=== PATIENT | male | born 1930 | race African-American/Black ===

== ENCOUNTER 2017-12-13 11:59 | Inpatient (IN) | payer MEDICARE, OTHER ==
[2017-12-13] VITALS (7 sets, daily range): BP systolic 82–105; BP diastolic 42–58
[~2017-12-13] VITALS: Ht 172.7 cm; Wt 58.5 kg
[2017-12-13] MEDS ORDERED: ASPIR 8181 MG ORAL (12:11)
[2017-12-13] MEDS ORDERED: BACLOFEN10 MG ORAL (12:11)
[2017-12-13] MEDS ORDERED: DONEPEZIL HCL5 MG ORAL (12:11)
[2017-12-13] MEDS ORDERED: PROSCAR5 MG ORAL (12:14)
[2017-12-13] MEDS ORDERED: FERROUS SULFAT325 MG ORAL (12:14)
[2017-12-13] MEDS ORDERED: MULTIVITAMINS1 EAC8 ORAL (12:14)
[2017-12-13] MEDS ORDERED: MELATONIN10 M4 PO (12:14)
[2017-12-13] MEDS ORDERED: GENTAMICIN SULF15 G2 TOPIC (12:14)
[2017-12-13] MEDS ORDERED: TYLENOL325 MG ORAL (12:22)
[2017-12-13] MEDS ORDERED: POLYETHYLENE GL17 GM ORAL (12:22)
[2017-12-13] MEDS ORDERED: SENNA LAXATIVE8.6 MG PO (12:22)
[2017-12-13] MEDS ORDERED: ACETAMINOPHEN325 M1 ORAL ×2 (12:22→12:26)
[2017-12-13] MEDS ORDERED: TAMSULOSIN HCL0.4 MG ORAL (12:22)
[2017-12-13] MEDS ORDERED: VITAMIN C500 M1 ORAL (12:26)
[2017-12-13] MEDS ORDERED: ZINC50 M1 ORAL (12:26)
[2017-12-13 13:26] LABS: HEMATOCRIT 38.6 % (42.0-52.0); HEMOGLOBIN 11.5 G/DL (14.2-18.0); MEAN CORPUSCULAR VOLUME 79 FL (80-99); PLATELET COUNT 467 K/UL (150-450); RED BLOOD COUNT 4.88 M/UL (4.70-6.10); RED CELL DISTRIBUTION WIDTH 17.7 % (11.6-14.8)
--- NOTE | 2017-12-13 13:30 | Diagnostic Imaging Report ---
Indication: Chest pain Comparison: None A single view chest radiograph was obtained. Findings: No definite infiltrate or pulmonary vascular congestion identified. The heart is normal in size. The aorta is mildly enlarged consistent with atherosclerotic vascular disease. Old rib fractures noted on the right. The bones are osteopenic. Impression: No acute disease
[2017-12-13 14:08] LABS: APPEARANCE,URINE TURBID; BILIRUBIN, URINE NEGATIVE (NEGATIVE); GLUCOSE, URINE (UA) NEGATIVE (NEGATIVE); KETONES,URINE NEGATIVE (NEGATIVE); LEUKOCYTE ESTERASE ,URINE 3+ (NEGATIVE); NITRITE,URINE POSITIVE (NEGATIVE); PH,URINE 8 (4.5-8.0); PROTEIN,URINE 4+ (NEGATIVE); UROBILINOGEN,URINE NORMAL MG/DL (0.0-1.0)
[2017-12-13 14:10] LABS: ANION GAP 16 mmol/L (5-15); BLOOD UREA NITROGEN 34 mg/dL (7-18); CALCIUM 10.5 MG/DL (8.5-10.1); CARBON DIOXIDE 19 MMOL/L (21-32); CHLORIDE 101 MMOL/L (98-107); CREATININE 1.3 MG/DL (0.55-1.30); SODIUM 136 MMOL/L (136-145)
[2017-12-13 14:11] LABS: COLOR,URINE PALE YELLOW
--- NOTE | 2017-12-13 14:13 | Emergency Room Report ---
History of Present Illness General Chief Complaint: Altered Level of Consciousness Present Illness Allergies: Coded Allergies: DIVALPROEX SODIUM (Verified Allergy, Unknown, 12/13/17) TERAZOSIN (Verified Allergy, Unknown, 12/13/17) Physical Exam Vital Signs Date Time Temp Pulse Resp B/P (MAP) Pulse Ox O2 Delivery O2 Flow Rate FiO2 12/13/17 12:04 110 24 83/44 98 Nasal Cannula 12/13/17 12:15 100.1 100.1 Medical Decision Making ER Course CHART IN ERROR PLEASE SEE OTHER CHART Last Vital Signs Date Time Temp Pulse Resp B/P (MAP) Pulse Ox O2 Delivery O2 Flow Rate FiO2 12/13/17 12:15 100.1 125 26 92/51 100 Room Air 100.1 Referrals: NON PHYSICIAN (PCP) Davdi Denney M.D. Dec 13, 2017 14:13
[2017-12-13] MEDS ORDERED: Miralax 17gm pkt ORAL PRN (14:30)
[2017-12-13] MEDS ORDERED: Morphine Sulfate 2mg/ml Inj IVP PRN (14:30)
[2017-12-13] MEDS ORDERED: Albuterol/Ipratropium 3ml neb HHN PRN (14:30)
--- NOTE | 2017-12-13 14:30 | History and Physical ---
History of Present Illness General Date patient seen: Dec 13, 2017 Reason for Hospitalization: Altered Level of Consciousness Present Illness HPI 87 year old male with hx of end-stage dementia, cachexia, residential resident brought in by paramedics with CC of altered level of consciousness. Pt seems very cachectic, hardly able to open his eyes. Allergies: Coded Allergies: DIVALPROEX SODIUM (Verified Allergy, Unknown, 12/13/17) TERAZOSIN (Verified Allergy, Unknown, 12/13/17) Medication History Scheduled Ascorbic Acid* (Vitamin C*), 500 MG ORAL DAILY, (Reported) Aspirin* (Aspir 81*), 81 MG ORAL DAILY, (Reported) Baclofen* (Baclofen*), 5 MG ORAL BID, (Reported) Donepezil Hcl* (Donepezil Hcl*), 5 MG ORAL DAILY, (Reported) Ferrous Sulfate* (Ferrous Sulfate*), 325 MG ORAL DAILY, (Reported) Finasteride* (Proscar*), 5 MG ORAL DAILY, (Reported) Gentamicin Sulfate (Gentamicin Sulfate*), 1 APPLIC TOPIC DAILY, (Reported) Melatonin (Melatonin), 9 MG PO BEDTIME, (Reported) Multivitamin With Minerals (Multivitamins With Minerals*), 1 TAB ORAL DAILY, ( Reported) Polyethylene Glycol 3350* (Polyethylene Glycol 3350*), 17 GM ORAL DAILY, ( Reported) Tamsulosin Hcl (Tamsulosin Hcl*), 0.4 MG ORAL BEDTIME, (Reported) Zinc (Zinc), Unknown Dose ORAL DAILY, (Reported) Scheduled PRN Acetaminophen (Tylenol), 650 MG ORAL DAILY PRN for Prn Pain/Headache/Temp > 101, (Reported) Acetaminophen* (Acetaminophen 325MG Tablet*), 325 MG ORAL Q4H PRN for Mild Pain (Pain Scale 1-3), (Reported) Acetaminophen* (Acetaminophen 325MG Tablet*), 325 MG ORAL Q4H PRN for Pain Scale (6-10), (Reported) Sennosides (Senna Laxative), 8.6 MG PO for Constipation, (Reported) Patient History Healthcare decision maker Resuscitation status Advanced Directive on File Past Medical/Surgical History Past Medical/Surgical History: (1) Advanced dementia Review of Systems All Other Systems: negative except mentioned in HPI Physical Exam General Appearance: WD/WN, cachetic Lines, tubes and drains: peripheral HEENT: normocephalic, atraumatic Neck: non-tender, normal alignment Breasts: no masses Cardiovascular/Chest: normal peripheral pulses Abdomen: normal bowel sounds, non tender Genitourinary/Rectal: normal genital exam Extremities: normal range of motion Skin Exam: normal pigmentation Last 24 Hour Vital Signs Date Time Temp Pulse Resp B/P (MAP) Pulse Ox O2 Delivery O2 Flow Rate FiO2 12/13/17 12:15 100.1 125 26 92/51 100 Room Air 100.1 12/13/17 12:04 110 24 83/44 98 Nasal Cannula Laboratory Tests Test 12/13/17 12:17 12/13/17 13:49 White Blood Count 31.0 K/UL (4.8-10.8) *H Red Blood Count 4.88 M/UL (4.70-6.10) Hemoglobin 11.5 G/DL (14.2-18.0) L Hematocrit 38.6 % (42.0-52.0) L Mean Corpuscular Volume 79 FL (80-99) L Mean Corpuscular Hemoglobin 23.5 PG (27.0-31.0) L Mean Corpuscular Hemoglobin Concent 29.7 G/DL (32.0-36.0) L Red Cell Distribution Width 17.7 % (11.6-14.8) H Platelet Count 467 K/UL (150-450) H Mean Platelet Volume 5.7 FL (6.5-10.1) L Neutrophils (%) (Auto) % (45.0-75.0) Lymphocytes (%) (Auto) % (20.0-45.0) Monocytes (%) (Auto) % (1.0-10.0) Eosinophils (%) (Auto) % (0.0-3.0) Basophils (%) (Auto) % (0.0-2.0) Differential Total Cells Counted 100 Neutrophils % (Manual) 88 % (45-75) H Lymphocytes % (Manual) 4 % (20-45) L Monocytes % (Manual) 3 % (1-10) Eosinophils % (Manual) 0 % (0-3) Basophils % (Manual) 0 % (0-2) Band Neutrophils 5 % (0-8) Platelet Estimate Adequate Platelet Morphology Normal Hypochromasia 1+ Anisocytosis 1+ Microcytosis 1+ Sodium Level 136 MMOL/L (136-145) Potassium Level 4.0 MMOL/L (3.5-5.1) Chloride Level 101 MMOL/L (98-107) Carbon Dioxide Level 19 MMOL/L (21-32) L Anion Gap 16 mmol/L (5-15) H Blood Urea Nitrogen 34 mg/dL (7-18) H Creatinine 1.3 MG/DL (0.55-1.30) Estimat Glomerular Filtration Rate mL/min (>60) Glucose Level 203 MG/DL (74-106) H Calcium Level 10.5 MG/DL (8.5-10.1) H Urine Color Pale yellow Urine Appearance Turbid Urine pH 8 (4.5-8.0) Urine Specific [place] 1.015 (1.005-1.035) Urine Protein 4+ (NEGATIVE) H Urine Glucose (UA) Negative (NEGATIVE) Urine Ketones Negative (NEGATIVE) Urine Blood 5+ (NEGATIVE) H Urine Nitrite Positive (NEGATIVE) H Urine Bilirubin Negative (NEGATIVE) Urine Urobilinogen Normal MG/DL (0.0-1.0) Urine Leukocyte Esterase 3+ (NEGATIVE) H Urine RBC 20-30 /HPF (0 - 0) H Urine WBC Tntc /HPF (0 - 0) H Urine Squamous Epithelial Cells Occasional /LPF Urine Bacteria Many /HPF (NONE) H Height (Feet): 5 Height (Inches): 8.00 Weight (Pounds): 130 Medications Current Medications Medications (Trade) Dose Ordered Sig/Sina Route PRN Reason Start Time Stop Time Status Last Admin Dose Admin Sodium Chloride 500 ml @ 250 mls/hr Q2H ONCE IV 12/13/17 13:02 12/13/17 15:01 12/13/17 13:20 Assessment/Plan Problem List: (1) Sepsis ICD Codes: A41.9 - Sepsis, unspecified organism SNOMED: 70888014 (2) ATN (acute tubular necrosis) ICD Codes: N17.0 - Acute kidney failure with tubular necrosis SNOMED: 26402799 (3) Advanced dementia ICD Codes: F03.90 - Unspecified dementia without behavioral disturbance SNOMED: 41837327 Assessment/Plan swan culture iv fluids iv abx swallow study check electrolytes NS to support BP dvt prophylaxis. Jossie Vela MD Dec 13, 2017 14:30
--- NOTE | 2017-12-13 14:32 | Emergency Room Report ---
History of Present Illness General Chief Complaint: Altered Level of Consciousness Present Illness HPI 87M SNF patient with DNR/comfort only sent for being more altered. Allergies: Coded Allergies: DIVALPROEX SODIUM (Verified Allergy, Unknown, 12/13/17) TERAZOSIN (Verified Allergy, Unknown, 12/13/17) Review of Systems All Other Systems: limited Physical Exam Vital Signs Date Time Temp Pulse Resp B/P (MAP) Pulse Ox O2 Delivery O2 Flow Rate FiO2 12/13/17 12:04 110 24 83/44 98 Nasal Cannula 12/13/17 12:15 100.1 100.1 Sp02 EP Interpretation: reviewed, normal General Appearance: no apparent distress, lethargic Head: normocephalic, atraumatic ENT: dry mucus membranes Neck: no carotid bruits Respiratory: no respiratory distress, speaking full sentences Cardiovascular #1: regular rate, rhythm Gastrointestinal: normal bowel sounds Musculoskeletal: other - right AKA Neurologic: other - minimally responsive, moves a little when stimulated; but otherwise just staring at ceiling, not moving Psychiatric: mood/affect normal Skin: no rash Medical Decision Making Diagnostic Impression: Primary Impression: Altered level of consciousness Additional Impression: Sepsis ER Course this patient is DNR/DNI and wbc 30k no infiltrate on cxr, urine pending. will defer antibx. to PMD SNF does not want to take back sepsis protocol not initiated due to DNR Chest X-Ray Diagnostic Results Chest X-Ray Diagnostic Results : Chest X-Ray Ordered: Yes # of Views/Limited/Complete: 1 View Indication: Shortness of Breath Interpretation: no consolidation, no effusion, no pneumothorax, no acute cardiopulmonary disease Last Vital Signs Date Time Temp Pulse Resp B/P (MAP) Pulse Ox O2 Delivery O2 Flow Rate FiO2 12/13/17 12:15 100.1 125 26 92/51 100 Room Air 100.1 Disposition: ADMITTED INPATIENT Referrals: NON PHYSICIAN (PCP) David Denney M.D. Dec 13, 2017 14:32
[2017-12-13] MEDS ORDERED: Vancomycin 1250mg/D5W 250ml IVPB ONE (18:00)
[2017-12-13] MEDS: Cefepime HCl 2 GM in D5W 110 ML IV SCH (18:14)
[2017-12-13] MEDS: Tamsulosin 0.4mg cap ORAL SCH (21:40)
[2017-12-13] MEDS: Heparin 5000 units/ml inj SUBQ SCH (21:44)
[2017-12-14] VITALS: BP 98/56
[2017-12-14] MEDS ORDERED: Vancomycin 1 GM in D5W 275 ML IV SCH (00:30)
[2017-12-14 04:00] VITALS: BP 109/87
[2017-12-14 07:55] LABS: HEMATOCRIT 32.9 % (42.0-52.0); HEMOGLOBIN 10.1 G/DL (14.2-18.0); MEAN CORPUSCULAR VOLUME 78 FL (80-99); PLATELET COUNT 400 K/UL (150-450); RED CELL DISTRIBUTION WIDTH 17.4 % (11.6-14.8)
[2017-12-14 07:58] LABS: WHITE BLOOD COUNT 24.2 K/UL (4.8-10.8)
[2017-12-14 08:00] VITALS: BP 110/56
[2017-12-14 08:17] LABS: ALANINE AMINOTRANSFERASE 80 U/L (12-78); ALBUMIN/GLOBULIN RATIO 0.3 (1.0-2.7); ALKALINE PHOSPHATASE 184 U/L (46-116); ANION GAP 12 mmol/L (5-15); ASPARTATE AMINO TRANSFERASE 72 U/L (15-37); BILIRUBIN,TOTAL 0.3 MG/DL (0.2-1.0); BLOOD UREA NITROGEN 35 mg/dL (7-18); CALCIUM 9.8 MG/DL (8.5-10.1); CARBON DIOXIDE 22 MMOL/L (21-32); CHLORIDE 106 MMOL/L (98-107); CREATININE 0.7 MG/DL (0.55-1.30); POTASSIUM 3.6 MMOL/L (3.5-5.1); SODIUM 140 MMOL/L (136-145)
--- NOTE | 2017-12-14 08:18 | Consultation ---
History of Present Illness General Date patient seen: Dec 14, 2017 Chief Complaint: Altered Level of Consciousness Reason for Consultation: Altered level of conciousness Present Illness HPI Infectious Disease Consult Note Mr. Morris is a 87 yo male presenting from a SNF for worse ALOC then usual. He is non-verbal so history obtained from the chart. He came with a sanabria catheter with cloudy urine. No further history available at this time. In the ED he was febrile to 100.5, Had a leukocytosis of 31 and was noted to have sacral ulcer. UA was positive with WBCs TNTC, CXR show No acute disease ID was consulted for sepsis Today the patient is still altered and not verbal but following simple commands , On RA and Afebrile. PMHx/PSHx Unable to obtian due to ALOC SocHx Live in a senior living DNR FamHx Unable to obtian due to ALOC Allergies: Coded Allergies: DIVALPROEX SODIUM (Verified Allergy, Unknown, 12/13/17) TERAZOSIN (Verified Allergy, Unknown, 12/13/17) Medication History Scheduled Ascorbic Acid* (Vitamin C*), 500 MG ORAL DAILY, (Reported) Aspirin* (Aspir 81*), 81 MG ORAL DAILY, (Reported) Baclofen* (Baclofen*), 5 MG ORAL BID, (Reported) Donepezil Hcl* (Donepezil Hcl*), 5 MG ORAL DAILY, (Reported) Ferrous Sulfate* (Ferrous Sulfate*), 325 MG ORAL DAILY, (Reported) Finasteride* (Proscar*), 5 MG ORAL DAILY, (Reported) Gentamicin Sulfate (Gentamicin Sulfate*), 1 APPLIC TOPIC DAILY, (Reported) Melatonin (Melatonin), 9 MG PO BEDTIME, (Reported) Multivitamin With Minerals (Multivitamins With Minerals*), 1 TAB ORAL DAILY, ( Reported) Polyethylene Glycol 3350* (Polyethylene Glycol 3350*), 17 GM ORAL DAILY, ( Reported) Tamsulosin Hcl (Tamsulosin Hcl*), 0.4 MG ORAL BEDTIME, (Reported) Zinc (Zinc), Unknown Dose ORAL DAILY, (Reported) Scheduled PRN Acetaminophen (Tylenol), 650 MG ORAL DAILY PRN for Prn Pain/Headache/Temp > 101, (Reported) Acetaminophen* (Acetaminophen 325MG Tablet*), 325 MG ORAL Q4H PRN for Mild Pain (Pain Scale 1-3), (Reported) Acetaminophen* (Acetaminophen 325MG Tablet*), 325 MG ORAL Q4H PRN for Pain Scale (6-10), (Reported) Sennosides (Senna Laxative), 8.6 MG PO for Constipation, (Reported) Patient History Healthcare decision maker ALLEN MORRIS Resuscitation status No Electrical Cardiovers Advanced Directive on File No Review of Systems ROS Narrative Unable to obtain due to ALOC Physical Exam Last 24 Hour Vital Signs Date Time Temp Pulse Resp B/P (MAP) Pulse Ox O2 Delivery O2 Flow Rate FiO2 12/14/17 04:00 98.6 109 20 109/87 (94) 100 98.6 12/14/17 00:00 98.5 103 20 98/56 (70) 98 98.5 12/13/17 21:00 Room Air 12/13/17 20:41 99.6 12/13/17 20:28 80 18 Room Air 12/13/17 20:11 100.5 12/13/17 20:00 99.6 106 20 97/53 (68) 98 99.6 12/13/17 17:11 Room Air 12/13/17 17:10 Room Air 12/13/17 17:08 105.0 82 18 82/44 (57) 95 105.0 12/13/17 17:00 100.5 82 18 82/42 (55) 95 100.5 12/13/17 16:07 97.8 102 20 110/53 98 Room Air 99.1 12/13/17 15:00 108 22 99/52 98 Room Air 12/13/17 14:00 116 29 105/56 99 Room Air 12/13/17 13:00 99.1 122 27 100/58 100 Room Air 99.1 12/13/17 12:15 100.1 125 26 92/51 100 Room Air 100.1 12/13/17 12:04 110 24 83/44 98 Nasal Cannula Intake and Output 12/13/17 12/14/17 19:00 07:00 Intake Total 500 ml Output Total 170 ml 600 ml Balance 330 ml -600 ml Intake Oral 0 ml IV Total 500 ml Output Urine Total 170 ml 600 ml # Bowel Movements 1 1 Laboratory Tests Test 12/13/17 12:17 12/13/17 13:49 12/14/17 06:40 White Blood Count 31.0 K/UL (4.8-10.8) *H 24.2 K/UL (4.8-10.8) *H Red Blood Count 4.88 M/UL (4.70-6.10) 4.20 M/UL (4.70-6.10) L Hemoglobin 11.5 G/DL (14.2-18.0) L 10.1 G/DL (14.2-18.0) L Hematocrit 38.6 % (42.0-52.0) L 32.9 % (42.0-52.0) L Mean Corpuscular Volume 79 FL (80-99) L 78 FL (80-99) L Mean Corpuscular Hemoglobin 23.5 PG (27.0-31.0) L 24.0 PG (27.0-31.0) L Mean Corpuscular Hemoglobin Concent 29.7 G/DL (32.0-36.0) L 30.6 G/DL (32.0-36.0) L Red Cell Distribution Width 17.7 % (11.6-14.8) H 17.4 % (11.6-14.8) H Platelet Count 467 K/UL (150-450) H 400 K/UL (150-450) Mean Platelet Volume 5.7 FL (6.5-10.1) L 5.9 FL (6.5-10.1) L Neutrophils (%) (Auto) % (45.0-75.0) % (45.0-75.0) Lymphocytes (%) (Auto) % (20.0-45.0) % (20.0-45.0) Monocytes (%) (Auto) % (1.0-10.0) % (1.0-10.0) Eosinophils (%) (Auto) % (0.0-3.0) % (0.0-3.0) Basophils (%) (Auto) % (0.0-2.0) % (0.0-2.0) Differential Total Cells Counted 100 Neutrophils % (Manual) 88 % (45-75) H Pending Lymphocytes % (Manual) 4 % (20-45) L Pending Monocytes % (Manual) 3 % (1-10) Eosinophils % (Manual) 0 % (0-3) Basophils % (Manual) 0 % (0-2) Band Neutrophils 5 % (0-8) Platelet Estimate Adequate Pending Platelet Morphology Normal Pending Hypochromasia 1+ Anisocytosis 1+ Microcytosis 1+ Sodium Level 136 MMOL/L (136-145) Pending Potassium Level 4.0 MMOL/L (3.5-5.1) Pending Chloride Level 101 MMOL/L (98-107) Pending Carbon Dioxide Level 19 MMOL/L (21-32) L Pending Anion Gap 16 mmol/L (5-15) H Blood Urea Nitrogen 34 mg/dL (7-18) H Pending Creatinine 1.3 MG/DL (0.55-1.30) Pending Estimat Glomerular Filtration Rate mL/min (>60) Pending Glucose Level 203 MG/DL (74-106) H Pending Calcium Level 10.5 MG/DL (8.5-10.1) H Pending Urine Color Pale yellow Urine Appearance Turbid Urine pH 8 (4.5-8.0) Urine Specific [place] 1.015 (1.005-1.035) Urine Protein 4+ (NEGATIVE) H Urine Glucose (UA) Negative (NEGATIVE) Urine Ketones Negative (NEGATIVE) Urine Blood 5+ (NEGATIVE) H Urine Nitrite Positive (NEGATIVE) H Urine Bilirubin Negative (NEGATIVE) Urine Urobilinogen Normal MG/DL (0.0-1.0) Urine Leukocyte Esterase 3+ (NEGATIVE) H Urine RBC 20-30 /HPF (0 - 0) H Urine WBC Tntc /HPF (0 - 0) H Urine Squamous Epithelial Cells Occasional /LPF Urine Bacteria Many /HPF (NONE) H Total Bilirubin Pending Aspartate Amino Transf (AST/SGOT) Pending Alanine Aminotransferase (ALT/SGPT) Pending Alkaline Phosphatase Pending Total Protein Pending Albumin Pending Globulin Pending Height (Feet): 5 Height (Inches): 8.00 Weight (Pounds): 130 Medications Current Medications Medications (Trade) Dose Ordered Sig/Sina Route PRN Reason Start Time Stop Time Status Last Admin Dose Admin Acetaminophen (Tylenol) 650 mg Q4H PRN ORAL fever (temp>100.5F) 12/13/17 14:30 01/12/18 14:29 12/13/17 20:11 Albuterol/ Ipratropium (Albuterol/ Ipratropium) 3 ml Q4H PRN HHN Shortness of Breath 12/13/17 14:30 12/18/17 14:29 Cefepime HCl 2 gm/ Dextrose 110 ml @ 220 mls/hr DAILY IV 12/13/17 16:00 12/20/17 15:59 12/13/17 18:14 Finasteride (Proscar) 5 mg DAILY ORAL 12/14/17 09:00 01/13/18 08:59 Heparin Sodium (Porcine) (Heparin 5000 units/ml) 5,000 units EVERY 12 HOURS SUBQ 12/13/17 21:00 01/12/18 20:59 12/13/17 21:44 Morphine Sulfate (Morphine Sulfate) 2 mg Q4H PRN IVP Moderate Pain (Pain Scale 4-6) 12/13/17 14:30 12/20/17 14:29 Ondansetron HCl (Zofran) 4 mg Q6H PRN IVP Nausea & Vomiting 12/13/17 14:30 01/12/18 14:29 Phenazopyridine HCl (Pyridium) 100 mg DAILYPRN PRN ORAL dysuria 12/13/17 14:30 01/12/18 14:29 Polyethylene Glycol (Miralax) 17 gm DAILYPRN PRN ORAL Constipation 12/13/17 14:30 01/12/18 14:29 Sodium Chloride 1,000 ml @ 50 mls/hr Q20H IV 12/14/17 06:45 01/13/18 06:44 12/14/17 06:55 Tamsulosin HCl (Flomax) 0.4 mg BEDTIME ORAL 12/13/17 21:00 01/12/18 20:59 12/13/17 21:40 Temazepam (Restoril) 15 mg HSPRN PRN ORAL Insomnia 12/13/17 21:00 12/20/17 20:59 Vancomycin HCl (Vanco rx to dose) 1 ea DAILY PRN MISC PER RX PROTOCOL 12/13/17 15:45 01/12/18 15:44 Vancomycin/Sodium Chloride 250 ml @ 166.667 mls/hr Q24H IVPB 12/14/17 18:00 12/19/17 17:59 Objective Narrative Gen: NAD, Following commands HEENT: NCAT, MMM, EOMI, PERRL, No Oral lesion, no scleral icterus, Poor dentition NECK: supple, No LAD, No JVD LUNGS: CTAB, No W/C, No Accessory muscle use CARDS: RRR, S1, S2, No M/R/G, ABD: Soft, NT, ND, No R/G, + BS, No HSM, No Masses : Sanabria in place Ext: C/C/E, Pulses 2+ B/L (DP, Rad): NEURO: A/O x O, Strength generally weak. Sensation Grossly intact PSYCH: Unable to assess SKIN:~ warm/dry, No rashes,Sacral ulcer unstageable with undermining - No significant surrounding erythema, no purulent drainage Assessment/Plan Assessment/Plan A: 87 yo male presenting from a SNF for worse ALOC then usual. Sepsis - Probable UTI or Bacteremia 12/13/17 - UA was positive with WBCs TNTC 12/13/17 - CXR - No acute disease Leukocytosis - 31 on admit - Down trending Fever - Resolved Sacral ulcer - Not stageable Not infected at this time No purulent drainage or significant surrounding erythema PMHx - Unknown P: Continue Cefepime and Vancomycin pending cultures f/u B/UCx Monitor CBC and Temps Supportive care Thank you for this consult. We will continue to follow the patient during this hospitalization Raf Blanchard MD Dec 14, 2017 08:18
[2017-12-14] MEDS: Cefepime HCl 2 GM in D5W 110 ML IV SCH (09:34)
[2017-12-14] MEDS: Heparin 5000 units/ml inj SUBQ SCH ×2 (09:38→20:48)
[2017-12-14 12:00] VITALS: BP 90/73
--- NOTE | 2017-12-14 14:26 | Pulmonology Progress Note ---
Assessment/Plan Problems: (1) Sepsis (2) ATN (acute tubular necrosis) (3) Advanced dementia Assessment/Plan Heart rate better still borderline hypotensive wbc decreasing Subjective ROS Limited/Unobtainable: No Constitutional: Reports: no symptoms HEENT: Repors: no symptoms Respiratory: Reports: no symptoms Allergies: Coded Allergies: DIVALPROEX SODIUM (Verified Allergy, Unknown, 12/13/17) TERAZOSIN (Verified Allergy, Unknown, 12/13/17) Objective Last 24 Hour Vital Signs Date Time Temp Pulse Resp B/P (MAP) Pulse Ox O2 Delivery O2 Flow Rate FiO2 12/14/17 12:00 98.6 108 18 90/73 (79) 100 98.6 12/14/17 09:00 Room Air 12/14/17 08:24 121 20 Room Air 12/14/17 08:00 98.1 123 20 110/56 (74) 97 98.1 12/14/17 04:00 98.6 109 20 109/87 (94) 100 98.6 12/14/17 00:00 98.5 103 20 98/56 (70) 98 98.5 12/13/17 21:00 Room Air 12/13/17 20:41 99.6 12/13/17 20:28 80 18 Room Air 12/13/17 20:11 100.5 12/13/17 20:00 99.6 106 20 97/53 (68) 98 99.6 12/13/17 17:11 Room Air 12/13/17 17:10 Room Air 12/13/17 17:08 105.0 82 18 82/44 (57) 95 105.0 12/13/17 17:00 100.5 82 18 82/42 (55) 95 100.5 12/13/17 16:07 97.8 102 20 110/53 98 Room Air 99.1 12/13/17 15:00 108 22 99/52 98 Room Air Intake and Output 12/13/17 12/14/17 19:00 07:00 Intake Total 500 ml Output Total 170 ml 600 ml Balance 330 ml -600 ml Intake Oral 0 ml IV Total 500 ml Output Urine Total 170 ml 600 ml # Bowel Movements 1 1 General Appearance: WD/WN HEENT: normocephalic, atraumatic Respiratory/Chest: chest wall non-tender, normal breath sounds Cardiovascular: normal peripheral pulses, normal rate Abdomen: normal bowel sounds, no organomegaly Skin: no rash, no ulcers Microbiology Date/Time Source Procedure Growth Status 12/13/17 13:49 Urine,Clean Catch Urine Culture - Preliminary Gram Negative Bacillus 1 Resulted Laboratory Tests 12/14/17 06:40: White Blood Count 24.2*H, Red Blood Count 4.20L, Hemoglobin 10.1L, Hematocrit 32.9L, Mean Corpuscular Volume 78L, Mean Corpuscular Hemoglobin 24.0L, Mean Corpuscular Hemoglobin Concent 30.6L, Red Cell Distribution Width 17.4H, Platelet Count 400, Mean Platelet Volume 5.9L, Neutrophils (%) (Auto) , Lymphocytes (%) (Auto) , Monocytes (%) (Auto) , Eosinophils (%) (Auto) , Basophils (%) (Auto) , Differential Total Cells Counted 100, Neutrophils % ( Manual) 83H, Lymphocytes % (Manual) 3L, Monocytes % (Manual) 10, Eosinophils % ( Manual) 0, Basophils % (Manual) 0, Band Neutrophils 4, Platelet Estimate Adequate, Platelet Morphology Normal, Red Blood Cell Morphology Normal, Sodium Level 140, Potassium Level 3.6, Chloride Level 106, Carbon Dioxide Level 22, Anion Gap 12, Blood Urea Nitrogen 35H, Creatinine 0.7, Estimat Glomerular Filtration Rate , Glucose Level 150H, Calcium Level 9.8, Total Bilirubin 0.3, Aspartate Amino Transf (AST/SGOT) 72H, Alanine Aminotransferase (ALT/SGPT) 80H, Alkaline Phosphatase 184H, Total Protein 8.0, Albumin 2.0L, Globulin 6.0, Albumin/Globulin Ratio 0.3L Current Medications Medications (Trade) Dose Ordered Sig/Sina Route PRN Reason Start Time Stop Time Status Last Admin Dose Admin Acetaminophen (Tylenol) 650 mg Q4H PRN ORAL fever (temp>100.5F) 12/13/17 14:30 01/12/18 14:29 12/13/17 20:11 Albuterol/ Ipratropium (Albuterol/ Ipratropium) 3 ml Q4H PRN HHN Shortness of Breath 12/13/17 14:30 12/18/17 14:29 Cefepime HCl 2 gm/ Dextrose 110 ml @ 220 mls/hr DAILY IV 12/13/17 16:00 12/20/17 15:59 12/14/17 09:34 Finasteride (Proscar) 5 mg DAILY ORAL 12/14/17 09:00 01/13/18 08:59 12/14/17 09:33 Heparin Sodium (Porcine) (Heparin 5000 units/ml) 5,000 units EVERY 12 HOURS SUBQ 12/13/17 21:00 01/12/18 20:59 12/14/17 09:38 Morphine Sulfate (Morphine Sulfate) 2 mg Q4H PRN IVP Moderate Pain (Pain Scale 4-6) 12/13/17 14:30 12/20/17 14:29 Ondansetron HCl (Zofran) 4 mg Q6H PRN IVP Nausea & Vomiting 12/13/17 14:30 01/12/18 14:29 Phenazopyridine HCl (Pyridium) 100 mg DAILYPRN PRN ORAL dysuria 12/13/17 14:30 01/12/18 14:29 Polyethylene Glycol (Miralax) 17 gm DAILYPRN PRN ORAL Constipation 12/13/17 14:30 01/12/18 14:29 Sodium Chloride 1,000 ml @ 50 mls/hr Q20H IV 12/14/17 06:45 01/13/18 06:44 12/14/17 06:55 Sodium Chloride 1,000 ml @ 999 mls/hr Q1H1M ONCE IV 12/14/17 14:15 12/14/17 15:15 UNV Tamsulosin HCl (Flomax) 0.4 mg BEDTIME ORAL 12/13/17 21:00 01/12/18 20:59 12/13/17 21:40 Temazepam (Restoril) 15 mg HSPRN PRN ORAL Insomnia 12/13/17 21:00 12/20/17 20:59 Vancomycin HCl (Vanco rx to dose) 1 ea DAILY PRN MISC PER RX PROTOCOL 12/13/17 15:45 01/12/18 15:44 Vancomycin/Sodium Chloride 250 ml @ 166.667 mls/hr Q24H IVPB 12/14/17 18:00 12/19/17 17:59 Jossie Vela MD Dec 14, 2017 14:26
--- NOTE | 2017-12-14 15:30 | Cardiology Report ---
APPROVED REPORT EKG Measurement Heart [id number] Sinus tachycardia Possible Left atrial enlargement Left axis deviation Inferior infarct, age undetermined T wave abnormality, consider lateral ischemia Abnormal ECG
[2017-12-14 16:00] VITALS: BP 102/98
[2017-12-14] MEDS ORDERED: Vancomycin 750mg/NS 250ml IVPB SCH (18:00)
[2017-12-14 20:00] VITALS: BP 104/57
[2017-12-14] MEDS: Tamsulosin 0.4mg cap ORAL SCH (20:47)
--- NOTE | 2017-12-14 21:44 | Consultation ---
History of Present Illness General Date patient seen: Dec 14, 2017 Chief Complaint: Altered Level of Consciousness Reason for Consultation: Altered level of conciousness Present Illness HPI 87 year old male with hx of end-stage dementia, cachexia, [facility] resident brought in by paramedics with CC of altered level of consciousness, the pt has waxing and waning of consciousness poor memory Allergies: Coded Allergies: DIVALPROEX SODIUM (Verified Allergy, Unknown, 12/13/17) TERAZOSIN (Verified Allergy, Unknown, 12/13/17) Medication History Scheduled Ascorbic Acid* (Vitamin C*), 500 MG ORAL DAILY, (Reported) Aspirin* (Aspir 81*), 81 MG ORAL DAILY, (Reported) Baclofen* (Baclofen*), 5 MG ORAL BID, (Reported) Donepezil Hcl* (Donepezil Hcl*), 5 MG ORAL DAILY, (Reported) Ferrous Sulfate* (Ferrous Sulfate*), 325 MG ORAL DAILY, (Reported) Finasteride* (Proscar*), 5 MG ORAL DAILY, (Reported) Gentamicin Sulfate (Gentamicin Sulfate*), 1 APPLIC TOPIC DAILY, (Reported) Melatonin (Melatonin), 9 MG PO BEDTIME, (Reported) Multivitamin With Minerals (Multivitamins With Minerals*), 1 TAB ORAL DAILY, ( Reported) Polyethylene Glycol 3350* (Polyethylene Glycol 3350*), 17 GM ORAL DAILY, ( Reported) Tamsulosin Hcl (Tamsulosin Hcl*), 0.4 MG ORAL BEDTIME, (Reported) Zinc (Zinc), Unknown Dose ORAL DAILY, (Reported) Scheduled PRN Acetaminophen (Tylenol), 650 MG ORAL DAILY PRN for Prn Pain/Headache/Temp > 101, (Reported) Acetaminophen* (Acetaminophen 325MG Tablet*), 325 MG ORAL Q4H PRN for Mild Pain (Pain Scale 1-3), (Reported) Acetaminophen* (Acetaminophen 325MG Tablet*), 325 MG ORAL Q4H PRN for Pain Scale (6-10), (Reported) Sennosides (Senna Laxative), 8.6 MG PO for Constipation, (Reported) Patient History Limited by: medical condition History Provided By: Patient, Medical Record, PMD Healthcare decision maker ALLEN MORRIS Resuscitation status No Electrical Cardiovers Advanced Directive on File No Past Medical/Surgical History Past Medical/Surgical History: (1) Altered level of consciousness (2) Advanced dementia (3) Sepsis (4) ATN (acute tubular necrosis) Review of Systems Psychiatric: Reports: prior hx, anxiety, depressed feelings Physical Exam General Appearance: no apparent distress, alert, confused, agitated Last 24 Hour Vital Signs Date Time Temp Pulse Resp B/P (MAP) Pulse Ox O2 Delivery O2 Flow Rate FiO2 12/14/17 20:00 99.6 113 20 104/57 (73) 99 99.6 12/14/17 19:04 107 20 Room Air 12/14/17 16:00 98.7 108 17 102/98 (99) 98 98.7 12/14/17 12:00 98.6 108 18 90/73 (79) 100 98.6 12/14/17 09:00 Room Air 12/14/17 08:24 121 20 Room Air 12/14/17 08:00 98.1 123 20 110/56 (74) 97 98.1 12/14/17 04:00 98.6 109 20 109/87 (94) 100 98.6 12/14/17 00:00 98.5 103 20 98/56 (70) 98 98.5 Intake and Output 12/13/17 12/14/17 19:00 07:00 Intake Total 500 ml Output Total 170 ml 600 ml Balance 330 ml -600 ml Intake Oral 0 ml IV Total 500 ml Output Urine Total 170 ml 600 ml # Bowel Movements 1 1 Laboratory Tests Test 12/14/17 06:40 12/14/17 17:15 White Blood Count 24.2 K/UL (4.8-10.8) *H Red Blood Count 4.20 M/UL (4.70-6.10) L Hemoglobin 10.1 G/DL (14.2-18.0) L Hematocrit 32.9 % (42.0-52.0) L Mean Corpuscular Volume 78 FL (80-99) L Mean Corpuscular Hemoglobin 24.0 PG (27.0-31.0) L Mean Corpuscular Hemoglobin Concent 30.6 G/DL (32.0-36.0) L Red Cell Distribution Width 17.4 % (11.6-14.8) H Platelet Count 400 K/UL (150-450) Mean Platelet Volume 5.9 FL (6.5-10.1) L Neutrophils (%) (Auto) % (45.0-75.0) Lymphocytes (%) (Auto) % (20.0-45.0) Monocytes (%) (Auto) % (1.0-10.0) Eosinophils (%) (Auto) % (0.0-3.0) Basophils (%) (Auto) % (0.0-2.0) Differential Total Cells Counted 100 Neutrophils % (Manual) 83 % (45-75) H Lymphocytes % (Manual) 3 % (20-45) L Monocytes % (Manual) 10 % (1-10) Eosinophils % (Manual) 0 % (0-3) Basophils % (Manual) 0 % (0-2) Band Neutrophils 4 % (0-8) Platelet Estimate Adequate Platelet Morphology Normal Red Blood Cell Morphology Normal Sodium Level 140 MMOL/L (136-145) Potassium Level 3.6 MMOL/L (3.5-5.1) Chloride Level 106 MMOL/L (98-107) Carbon Dioxide Level 22 MMOL/L (21-32) Anion Gap 12 mmol/L (5-15) Blood Urea Nitrogen 35 mg/dL (7-18) H Creatinine 0.7 MG/DL (0.55-1.30) Estimat Glomerular Filtration Rate mL/min (>60) Glucose Level 150 MG/DL (74-106) H Calcium Level 9.8 MG/DL (8.5-10.1) Total Bilirubin 0.3 MG/DL (0.2-1.0) Aspartate Amino Transf (AST/SGOT) 72 U/L (15-37) H Alanine Aminotransferase (ALT/SGPT) 80 U/L (12-78) H Alkaline Phosphatase 184 U/L (46-116) H Total Protein 8.0 G/DL (6.4-8.2) Albumin 2.0 G/DL (3.4-5.0) L Globulin 6.0 g/dL Albumin/Globulin Ratio 0.3 (1.0-2.7) L HIV (1&2) Antibody Rapid Negative (NEGATIVE) Hepatitis A IgM Antibody Pending Hepatitis B Surface Antigen Pending Hepatitis B Core IgM Antibody Pending Hepatitis C Antibody Pending Height (Feet): 5 Height (Inches): 8.00 Weight (Pounds): 130 Medications Current Medications Medications (Trade) Dose Ordered Sig/Sina Route PRN Reason Start Time Stop Time Status Last Admin Dose Admin Acetaminophen (Tylenol) 650 mg Q4H PRN ORAL fever (temp>100.5F) 12/13/17 14:30 01/12/18 14:29 12/13/17 20:11 Albuterol/ Ipratropium (Albuterol/ Ipratropium) 3 ml Q4H PRN HHN Shortness of Breath 12/13/17 14:30 12/18/17 14:29 Cefepime HCl 2 gm/ Dextrose 110 ml @ 220 mls/hr DAILY IV 12/13/17 16:00 12/20/17 15:59 12/14/17 09:34 Finasteride (Proscar) 5 mg DAILY ORAL 12/14/17 09:00 01/13/18 08:59 12/14/17 09:33 Heparin Sodium (Porcine) (Heparin 5000 units/ml) 5,000 units EVERY 12 HOURS SUBQ 12/13/17 21:00 01/12/18 20:59 12/14/17 20:48 Morphine Sulfate (Morphine Sulfate) 2 mg Q4H PRN IVP Moderate Pain (Pain Scale 4-6) 12/13/17 14:30 12/20/17 14:29 Ondansetron HCl (Zofran) 4 mg Q6H PRN IVP Nausea & Vomiting 12/13/17 14:30 01/12/18 14:29 Phenazopyridine HCl (Pyridium) 100 mg DAILYPRN PRN ORAL dysuria 12/13/17 14:30 01/12/18 14:29 Polyethylene Glycol (Miralax) 17 gm DAILYPRN PRN ORAL Constipation 12/13/17 14:30 01/12/18 14:29 Sodium Chloride 1,000 ml @ 50 mls/hr Q20H IV 12/14/17 06:45 01/13/18 06:44 12/14/17 06:55 Tamsulosin HCl (Flomax) 0.4 mg BEDTIME ORAL 12/13/17 21:00 01/12/18 20:59 12/14/17 20:47 Temazepam (Restoril) 15 mg HSPRN PRN ORAL Insomnia 12/13/17 21:00 12/20/17 20:59 Vancomycin HCl (Vanco rx to dose) 1 ea DAILY PRN MISC PER RX PROTOCOL 12/13/17 15:45 01/12/18 15:44 Vancomycin/Sodium Chloride 250 ml @ 166.667 mls/hr Q24H IVPB 12/14/17 18:00 12/19/17 17:59 12/14/17 17:07 Assessment/Plan Assessment/Plan encephalopathy due to [facility] Dementia -seroquel Nixon Barton MD Dec 14, 2017 21:44
[2017-12-15] VITALS: BP 98/51
[2017-12-15 04:00] VITALS: BP 90/46
--- NOTE | 2017-12-15 07:54 | Pulmonology Progress Note ---
Assessment/Plan Assessment/Plan ASSESSMENT Acute encephalopathy sepsis with bacteremia ( likely due to UTI) UTI with Proteus acute kidney injury dehydration anemia hypotension transaminitis prostate CA sacral decub, present on admission severe protein calorie malnutrition functional quadriplegia PLAN OF CARE Med Surg floor antibiotic ID follows , urine cx + proteus, bl cx 2/4 + GNR gentle IVF monitor electrolytes, renal parameters, correct electrolytes as needed ( today correct K) ,avoid nephrotoxic monitor BP closely O2 to keep pulse ox above 92%, pulmonary toilet DVT prophylaxis continue Proscar and Flomax wound care as per wound care nurse recommendation ; not appeared to be infected monitor LFT , probably shock liver due to sepsis monitor HH with goal to keep Hgb above 7 supportive care dietary eval DNR/DNI status. case discussed and evaluated by supervising physician Subjective Allergies: Coded Allergies: DIVALPROEX SODIUM (Verified Allergy, Unknown, 12/13/17) TERAZOSIN (Verified Allergy, Unknown, 12/13/17) Subjective leukocytosis trending down,still significant, fever at night Objective Last 24 Hour Vital Signs Date Time Temp Pulse Resp B/P (MAP) Pulse Ox O2 Delivery O2 Flow Rate FiO2 12/15/17 04:00 98.0 87 20 90/46 (61) 98 98.0 12/15/17 00:37 99.9 12/15/17 00:07 99.7 12/15/17 00:00 99.7 112 20 98/51 (67) 97 99.7 12/14/17 21:00 Room Air 12/14/17 20:00 99.6 113 20 104/57 (73) 99 99.6 12/14/17 19:04 107 20 Room Air 12/14/17 16:00 98.7 108 17 102/98 (99) 98 98.7 12/14/17 12:00 98.6 108 18 90/73 (79) 100 98.6 12/14/17 09:00 Room Air 12/14/17 08:24 121 20 Room Air 12/14/17 08:00 98.1 123 20 110/56 (74) 97 98.1 Intake and Output 12/14/17 12/15/17 19:00 07:00 Intake Total 240 ml 550 ml Output Total 400 ml 500 ml Balance -160 ml 50 ml Intake Oral 240 ml IV Total 550 ml Output Urine Total 400 ml 500 ml # Bowel Movements 1 General Appearance: cachetic, other - bedridden, frail, elderly contracted AA male HEENT: normocephalic Respiratory/Chest: lungs clear - with moderate air exchange Cardiovascular: no JVD, tachycardia Abdomen: soft, non tender Extremities: no edema Neurologic/Psychiatric: abnormal gait - bedridden , other - contracted Musculoskeletal: atrophy Microbiology Date/Time Source Procedure Growth Status 12/14/17 06:50 Blood Blood Culture - Preliminary Resulted 12/14/17 06:40 Blood Blood Culture - Preliminary Resulted 12/13/17 14:00 Nasal Nares MRSA Culture - Final NO METHICILLIN RESISTANT STAPH AUREUS... Complete 12/13/17 13:49 Urine,Clean Catch Urine Culture - Final Proteus Mirabilis Complete Laboratory Tests 12/14/17 17:15: Hepatitis A IgM Antibody [Pending], Hepatitis B Surface Antigen [Pending], Hepatitis B Core IgM Antibody [Pending], Hepatitis C Antibody [Pending] Current Medications Medications (Trade) Dose Ordered Sig/Sina Route PRN Reason Start Time Stop Time Status Last Admin Dose Admin Acetaminophen (Tylenol) 650 mg Q4H PRN ORAL fever (temp>100.5F) 12/13/17 14:30 01/12/18 14:29 12/15/17 00:07 Albuterol/ Ipratropium (Albuterol/ Ipratropium) 3 ml Q4H PRN HHN Shortness of Breath 12/13/17 14:30 12/18/17 14:29 Cefepime HCl 2 gm/ Dextrose 110 ml @ 220 mls/hr DAILY IV 12/13/17 16:00 12/20/17 15:59 12/14/17 09:34 Finasteride (Proscar) 5 mg DAILY ORAL 12/14/17 09:00 01/13/18 08:59 12/14/17 09:33 Heparin Sodium (Porcine) (Heparin 5000 units/ml) 5,000 units EVERY 12 HOURS SUBQ 12/13/17 21:00 01/12/18 20:59 12/14/17 20:48 Morphine Sulfate (Morphine Sulfate) 2 mg Q4H PRN IVP Moderate Pain (Pain Scale 4-6) 12/13/17 14:30 12/20/17 14:29 Ondansetron HCl (Zofran) 4 mg Q6H PRN IVP Nausea & Vomiting 12/13/17 14:30 01/12/18 14:29 Phenazopyridine HCl (Pyridium) 100 mg DAILYPRN PRN ORAL dysuria 12/13/17 14:30 01/12/18 14:29 Polyethylene Glycol (Miralax) 17 gm DAILYPRN PRN ORAL Constipation 12/13/17 14:30 01/12/18 14:29 Quetiapine Fumarate (SEROquel) 12.5 mg Q4H PRN ORAL agitation 12/14/17 21:45 01/13/18 21:44 Sodium Chloride 1,000 ml @ 50 mls/hr Q20H IV 12/14/17 06:45 01/13/18 06:44 12/15/17 05:09 Tamsulosin HCl (Flomax) 0.4 mg BEDTIME ORAL 12/13/17 21:00 01/12/18 20:59 12/14/17 20:47 Temazepam (Restoril) 15 mg HSPRN PRN ORAL Insomnia 12/13/17 21:00 12/20/17 20:59 Vancomycin HCl (Vanco rx to dose) 1 ea DAILY PRN MISC PER RX PROTOCOL 12/13/17 15:45 01/12/18 15:44 Vancomycin/Sodium Chloride 250 ml @ 166.667 mls/hr Q24H IVPB 12/14/17 18:00 12/19/17 17:59 12/14/17 17:07 Alyse Pruitt NP Dec 15, 2017 07:54
[2017-12-15 08:00] VITALS: BP 108/85
[2017-12-15 08:45] LABS: HEMOGLOBIN 8.5 G/DL (14.2-18.0); MEAN CORPUSCULAR VOLUME 79 FL (80-99); PLATELET COUNT 353 K/UL (150-450); RED BLOOD COUNT 3.43 M/UL (4.70-6.10); WHITE BLOOD COUNT 19.9 K/UL (4.8-10.8)
[2017-12-15] MEDS: Cefepime HCl 2 GM in D5W 110 ML IV SCH (09:18)
[2017-12-15] MEDS: Heparin 5000 units/ml inj SUBQ SCH ×2 (09:20→20:53)
[2017-12-15 09:21] LABS: ALANINE AMINOTRANSFERASE 79 U/L (12-78); ALBUMIN 1.7 G/DL (3.4-5.0); ALBUMIN/GLOBULIN RATIO 0.3 (1.0-2.7); ALKALINE PHOSPHATASE 155 U/L (46-116); ANION GAP 11 mmol/L (5-15); ASPARTATE AMINO TRANSFERASE 67 U/L (15-37); BILIRUBIN,TOTAL 0.4 MG/DL (0.2-1.0); BLOOD UREA NITROGEN 20 mg/dL (7-18); CALCIUM 8.9 MG/DL (8.5-10.1); CARBON DIOXIDE 21 MMOL/L (21-32); CHLORIDE 110 MMOL/L (98-107); CREATININE 0.5 MG/DL (0.55-1.30); PHOSPHORUS 2.6 MG/DL (2.5-4.9); POTASSIUM 3.3 MMOL/L (3.5-5.1); SODIUM 142 MMOL/L (136-145)
--- NOTE | 2017-12-15 10:36 | Consultation ---
History of Present Illness General Date patient seen: Dec 15, 2017 Chief Complaint: Altered Level of Consciousness Reason for Consultation: Altered level of conciousness Present Illness HPI 87 year old male with multiple medical comorbidities presented with altered mental status. currently under care and management of medical teams. noted to have multiple wounds upon admission. surgery called to evaluate and assist with care and management of wounds. patient seen, chart reviewed, patient examined. laying comfortable in bed, alert, and responsive to simple commands Allergies: Coded Allergies: DIVALPROEX SODIUM (Verified Allergy, Unknown, 12/13/17) TERAZOSIN (Verified Allergy, Unknown, 12/13/17) Medication History Scheduled Ascorbic Acid* (Vitamin C*), 500 MG ORAL DAILY, (Reported) Aspirin* (Aspir 81*), 81 MG ORAL DAILY, (Reported) Baclofen* (Baclofen*), 5 MG ORAL BID, (Reported) Donepezil Hcl* (Donepezil Hcl*), 5 MG ORAL DAILY, (Reported) Ferrous Sulfate* (Ferrous Sulfate*), 325 MG ORAL DAILY, (Reported) Finasteride* (Proscar*), 5 MG ORAL DAILY, (Reported) Gentamicin Sulfate (Gentamicin Sulfate*), 1 APPLIC TOPIC DAILY, (Reported) Melatonin (Melatonin), 9 MG PO BEDTIME, (Reported) Multivitamin With Minerals (Multivitamins With Minerals*), 1 TAB ORAL DAILY, ( Reported) Polyethylene Glycol 3350* (Polyethylene Glycol 3350*), 17 GM ORAL DAILY, ( Reported) Tamsulosin Hcl (Tamsulosin Hcl*), 0.4 MG ORAL BEDTIME, (Reported) Zinc (Zinc), Unknown Dose ORAL DAILY, (Reported) Scheduled PRN Acetaminophen (Tylenol), 650 MG ORAL DAILY PRN for Prn Pain/Headache/Temp > 101, (Reported) Acetaminophen* (Acetaminophen 325MG Tablet*), 325 MG ORAL Q4H PRN for Mild Pain (Pain Scale 1-3), (Reported) Acetaminophen* (Acetaminophen 325MG Tablet*), 325 MG ORAL Q4H PRN for Pain Scale (6-10), (Reported) Sennosides (Senna Laxative), 8.6 MG PO for Constipation, (Reported) Patient History Limited by: medical condition History Provided By: Medical Record, PMD Healthcare decision maker ALLEN MORRIS Resuscitation status No Electrical Cardiovers Advanced Directive on File No Past Medical/Surgical History Past Medical/Surgical History: (1) Sacral wound (2) Altered level of consciousness (3) Advanced dementia (4) Sepsis (5) ATN (acute tubular necrosis) Review of Systems All Other Systems: negative except mentioned in HPI Physical Exam General Appearance: no apparent distress Lines, tubes and drains: other HEENT: normocephalic, atraumatic Neck: normal inspection Respiratory/Chest: normal breath sounds, no respiratory distress, no accessory muscle use Cardiovascular/Chest: normal rate Abdomen: normal bowel sounds, non tender, soft, no organomegaly, no mass Extremities: non-tender, other Skin Exam: other Neurologic: alert Last 24 Hour Vital Signs Date Time Temp Pulse Resp B/P (MAP) Pulse Ox O2 Delivery O2 Flow Rate FiO2 12/15/17 09:00 Room Air 12/15/17 08:00 98.0 101 20 108/85 (93) 97 98.0 12/15/17 04:00 98.0 87 20 90/46 (61) 98 98.0 12/15/17 00:37 99.9 12/15/17 00:07 99.7 12/15/17 00:00 99.7 112 20 98/51 (67) 97 99.7 12/14/17 21:00 Room Air 12/14/17 20:00 99.6 113 20 104/57 (73) 99 99.6 12/14/17 19:04 107 20 Room Air 12/14/17 16:00 98.7 108 17 102/98 (99) 98 98.7 12/14/17 12:00 98.6 108 18 90/73 (79) 100 98.6 Intake and Output 12/14/17 12/15/17 19:00 07:00 Intake Total 240 ml 550 ml Output Total 400 ml 500 ml Balance -160 ml 50 ml Intake Oral 240 ml IV Total 550 ml Output Urine Total 400 ml 500 ml # Bowel Movements 1 Laboratory Tests Test 12/14/17 17:15 12/15/17 06:55 Hepatitis A IgM Antibody Negative (Negative) Hepatitis B Surface Antigen Negative (Negative) Hepatitis B Core IgM Antibody Negative (Negative) Hepatitis C Antibody 0.1 s/co ratio (0.0-0.9) White Blood Count 19.9 K/UL (4.8-10.8) H Red Blood Count 3.43 M/UL (4.70-6.10) L Hemoglobin 8.5 G/DL (14.2-18.0) L Hematocrit 27.0 % (42.0-52.0) L Mean Corpuscular Volume 79 FL (80-99) L Mean Corpuscular Hemoglobin 24.9 PG (27.0-31.0) L Mean Corpuscular Hemoglobin Concent 31.7 G/DL (32.0-36.0) L Red Cell Distribution Width 17.0 % (11.6-14.8) H Platelet Count 353 K/UL (150-450) Mean Platelet Volume 6.0 FL (6.5-10.1) L Neutrophils (%) (Auto) % (45.0-75.0) Lymphocytes (%) (Auto) % (20.0-45.0) Monocytes (%) (Auto) % (1.0-10.0) Eosinophils (%) (Auto) % (0.0-3.0) Basophils (%) (Auto) % (0.0-2.0) Neutrophils % (Manual) Pending Lymphocytes % (Manual) Pending Platelet Estimate Pending Platelet Morphology Pending Erythrocyte Sedimentation Rate 13 MM/HR (0-20) Sodium Level 142 MMOL/L (136-145) Potassium Level 3.3 MMOL/L (3.5-5.1) L Chloride Level 110 MMOL/L (98-107) H Carbon Dioxide Level 21 MMOL/L (21-32) Anion Gap 11 mmol/L (5-15) Blood Urea Nitrogen 20 mg/dL (7-18) H Creatinine 0.5 MG/DL (0.55-1.30) L Estimat Glomerular Filtration Rate mL/min (>60) Glucose Level 131 MG/DL (74-106) H Calcium Level 8.9 MG/DL (8.5-10.1) Phosphorus Level 2.6 MG/DL (2.5-4.9) Magnesium Level 2.1 MG/DL (1.8-2.4) Total Bilirubin 0.4 MG/DL (0.2-1.0) Aspartate Amino Transf (AST/SGOT) 67 U/L (15-37) H Alanine Aminotransferase (ALT/SGPT) 79 U/L (12-78) H Alkaline Phosphatase 155 U/L (46-116) H C-Reactive Protein, Quantitative > 70.0 mg/dL (0.00-0.90) H Total Protein 6.9 G/DL (6.4-8.2) Albumin 1.7 G/DL (3.4-5.0) L Globulin 5.2 g/dL Albumin/Globulin Ratio 0.3 (1.0-2.7) L Height (Feet): 5 Height (Inches): 8.00 Weight (Pounds): 130 Medications Current Medications Medications (Trade) Dose Ordered Sig/Sina Route PRN Reason Start Time Stop Time Status Last Admin Dose Admin Acetaminophen (Tylenol) 650 mg Q4H PRN ORAL fever (temp>100.5F) 12/13/17 14:30 01/12/18 14:29 12/15/17 00:07 Albuterol/ Ipratropium (Albuterol/ Ipratropium) 3 ml Q4H PRN HHN Shortness of Breath 12/13/17 14:30 12/18/17 14:29 Cefepime HCl 2 gm/ Dextrose 110 ml @ 220 mls/hr DAILY IV 12/13/17 16:00 12/20/17 15:59 12/15/17 09:18 Finasteride (Proscar) 5 mg DAILY ORAL 12/14/17 09:00 01/13/18 08:59 12/15/17 09:18 Heparin Sodium (Porcine) (Heparin 5000 units/ml) 5,000 units EVERY 12 HOURS SUBQ 12/13/17 21:00 01/12/18 20:59 12/15/17 09:20 Morphine Sulfate (Morphine Sulfate) 2 mg Q4H PRN IVP Moderate Pain (Pain Scale 4-6) 12/13/17 14:30 12/20/17 14:29 Ondansetron HCl (Zofran) 4 mg Q6H PRN IVP Nausea & Vomiting 12/13/17 14:30 01/12/18 14:29 Phenazopyridine HCl (Pyridium) 100 mg DAILYPRN PRN ORAL dysuria 12/13/17 14:30 01/12/18 14:29 Polyethylene Glycol (Miralax) 17 gm DAILYPRN PRN ORAL Constipation 12/13/17 14:30 01/12/18 14:29 Quetiapine Fumarate (SEROquel) 12.5 mg Q4H PRN ORAL agitation 12/14/17 21:45 01/13/18 21:44 Sodium Chloride 1,000 ml @ 50 mls/hr Q20H IV 12/14/17 06:45 01/13/18 06:44 12/15/17 05:09 Tamsulosin HCl (Flomax) 0.4 mg BEDTIME ORAL 12/13/17 21:00 01/12/18 20:59 12/14/17 20:47 Temazepam (Restoril) 15 mg HSPRN PRN ORAL Insomnia 12/13/17 21:00 12/20/17 20:59 Vancomycin HCl (Vanco rx to dose) 1 ea DAILY PRN MISC PER RX PROTOCOL 12/13/17 15:45 01/12/18 15:44 Vancomycin/Sodium Chloride 250 ml @ 166.667 mls/hr Q24H IVPB 12/14/17 18:00 12/19/17 17:59 12/14/17 17:07 Assessment/Plan Problem List: (1) Sepsis ICD Codes: A41.9 - Sepsis, unspecified organism SNOMED: 41596290 (2) Sacral wound Assessment & Plan: 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 Undermining at 11-3 by 4.3cm @1o'clock. Scattered loose slough noted to wound bed. Borders and periwound dark and indurated.No odor present. no significant drainage noted today. Dark discolored area noted to R trochanter(L)5.4cm x (W)5.6cm with historical scar noted centrally.injured site without induration but pt Stable dry eschar noted to Medial L malleolus(L)1.5cm x (W)3.2cm. Periwound without erythema or induration. Full thickness pressure injury noted to medial L heel (L)3cm x (W)5.1cm with 20 % yellow slough (+) maceration along borders. Slight erythema periwound. DTPI noted to L hallux (L)3.4cm (W)3.7cm. Indurated maroon discoloration to wound bed with red margins. Dark discoloration noted to lateral 5th metatarsal .No evidence of induration noted. 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 Tx.Plan: Cleanse sacral wound with Saline. Loose pack with Hydrogel impregnated Gauze.Cavilon wipe along borders and cover with Biatain drsg Daily and prn. Cleanse wound medial L heel with Saline.Apply Hydrogel to wound bed. Cavilon wipe along borders and periwound. Cover with Biatain drsg Daily and prn. Apply Cavilon wipe to Medial L malleolus and cover with Biatain drsg .Change prn if loose or soiled. Apply Cavilon to R trochanter with each drsg change. Cover with Biatain and Change prn. Apply Cavilon wipe to lateral L5th metatarsal with each drsg.Cover with Biatain and change prn. Air soft mattress. Turn and reposition at Minimum every 2 as tolerated. Please minimize positioning pt on R side side. Off-load pressure from L foot. ICD Codes: S31.000A - Unspecified open wound of lower back and pelvis without penetration into retroperitoneum, initial encounter SNOMED: 795020102 Status: stable NemesioJeremias Dec 15, 2017 10:36
--- NOTE | 2017-12-15 10:43 | Infectious Diseases Prog Note ---
Assessment/Plan Assessment/Plan A: 87 yo male presenting from a SNF for worse ALOC then usual. Sepsis - 2ry to UTI c/w Gram neg Bacteremia 12/13/17 - UA was positive with WBCs TNTC; ucx P, mirabilis (S Ceftriaxone) BCx 4/4 GNRs 12/13/17 - CXR - No acute disease Leukocytosis - 31 on admit - Down trending Fever - improving Sacral ulcer - Not stageable Not infected at this time No purulent drainage or significant surrounding erythema PMHx - Unknown P: Continue Cefepime #3 for UTI and pending GNR Bcx d/c empiric IV Vancomycin #3 Bcx x2 f/u B/UCx Monitor CBC and Temps Supportive care Thank you for this consult. We will continue to follow the patient during this hospitalization Subjective Allergies: Coded Allergies: DIVALPROEX SODIUM (Verified Allergy, Unknown, 12/13/17) TERAZOSIN (Verified Allergy, Unknown, 12/13/17) Subjective afebrile in ~36hrs bacteremic GNRs Objective Vital Signs Last 24 Hour Vital Signs Date Time Temp Pulse Resp B/P (MAP) Pulse Ox O2 Delivery O2 Flow Rate FiO2 12/15/17 09:00 Room Air 12/15/17 08:00 98.0 101 20 108/85 (93) 97 98.0 12/15/17 04:00 98.0 87 20 90/46 (61) 98 98.0 12/15/17 00:37 99.9 12/15/17 00:07 99.7 12/15/17 00:00 99.7 112 20 98/51 (67) 97 99.7 12/14/17 21:00 Room Air 12/14/17 20:00 99.6 113 20 104/57 (73) 99 99.6 12/14/17 19:04 107 20 Room Air 12/14/17 16:00 98.7 108 17 102/98 (99) 98 98.7 12/14/17 12:00 98.6 108 18 90/73 (79) 100 98.6 Height (Feet): 5 Height (Inches): 8.00 Weight (Pounds): 130 Objective Gen: NAD, Following commands HEENT: NCAT, MMM, EOMI, PERRL, No Oral lesion, no scleral icterus, Poor dentition NECK: supple, No LAD, No JVD LUNGS: CTAB, No W/C, No Accessory muscle use CARDS: RRR, S1, S2, No M/R/G, ABD: Soft, NT, ND, No R/G, + BS, No HSM, No Masses : Green in place Ext: C/C/E, Pulses 2+ B/L (DP, Rad): NEURO: A/O x O, Strength generally weak. Sensation Grossly intact PSYCH: Unable to assess SKIN:~ warm/dry, No rashes,Sacral ulcer unstageable with undermining - No significant surrounding erythema, no purulent drainage Microbiology Date/Time Source Procedure Growth Status 12/14/17 06:50 Blood Blood Culture - Preliminary Resulted 12/14/17 06:40 Blood Blood Culture - Preliminary Resulted 12/13/17 14:00 Nasal Nares MRSA Culture - Final NO METHICILLIN RESISTANT STAPH AUREUS... Complete 12/13/17 13:49 Urine,Clean Catch Urine Culture - Final Proteus Mirabilis Complete 12/13/17 14:00 Rectum VRE Culture - Final Enterococcus Faecium - Vre Complete 12/13/17 14:00 Rectum - Final NO CARBAPENEM-RESISTANT ENTEROBACTERI... Complete Laboratory Tests Test 12/14/17 17:15 12/15/17 06:55 Hepatitis A IgM Antibody Negative (Negative) Hepatitis B Surface Antigen Negative (Negative) Hepatitis B Core IgM Antibody Negative (Negative) Hepatitis C Antibody 0.1 s/co ratio (0.0-0.9) White Blood Count 19.9 K/UL (4.8-10.8) H Red Blood Count 3.43 M/UL (4.70-6.10) L Hemoglobin 8.5 G/DL (14.2-18.0) L Hematocrit 27.0 % (42.0-52.0) L Mean Corpuscular Volume 79 FL (80-99) L Mean Corpuscular Hemoglobin 24.9 PG (27.0-31.0) L Mean Corpuscular Hemoglobin Concent 31.7 G/DL (32.0-36.0) L Red Cell Distribution Width 17.0 % (11.6-14.8) H Platelet Count 353 K/UL (150-450) Mean Platelet Volume 6.0 FL (6.5-10.1) L Neutrophils (%) (Auto) % (45.0-75.0) Lymphocytes (%) (Auto) % (20.0-45.0) Monocytes (%) (Auto) % (1.0-10.0) Eosinophils (%) (Auto) % (0.0-3.0) Basophils (%) (Auto) % (0.0-2.0) Neutrophils % (Manual) Pending Lymphocytes % (Manual) Pending Platelet Estimate Pending Platelet Morphology Pending Erythrocyte Sedimentation Rate 13 MM/HR (0-20) Sodium Level 142 MMOL/L (136-145) Potassium Level 3.3 MMOL/L (3.5-5.1) L Chloride Level 110 MMOL/L (98-107) H Carbon Dioxide Level 21 MMOL/L (21-32) Anion Gap 11 mmol/L (5-15) Blood Urea Nitrogen 20 mg/dL (7-18) H Creatinine 0.5 MG/DL (0.55-1.30) L Estimat Glomerular Filtration Rate mL/min (>60) Glucose Level 131 MG/DL (74-106) H Calcium Level 8.9 MG/DL (8.5-10.1) Phosphorus Level 2.6 MG/DL (2.5-4.9) Magnesium Level 2.1 MG/DL (1.8-2.4) Total Bilirubin 0.4 MG/DL (0.2-1.0) Aspartate Amino Transf (AST/SGOT) 67 U/L (15-37) H Alanine Aminotransferase (ALT/SGPT) 79 U/L (12-78) H Alkaline Phosphatase 155 U/L (46-116) H C-Reactive Protein, Quantitative > 70.0 mg/dL (0.00-0.90) H Total Protein 6.9 G/DL (6.4-8.2) Albumin 1.7 G/DL (3.4-5.0) L Globulin 5.2 g/dL Albumin/Globulin Ratio 0.3 (1.0-2.7) L Current Medications Medications (Trade) Dose Ordered Sig/Sina Route PRN Reason Start Time Stop Time Status Last Admin Dose Admin Acetaminophen (Tylenol) 650 mg Q4H PRN ORAL fever (temp>100.5F) 12/13/17 14:30 01/12/18 14:29 12/15/17 00:07 Albuterol/ Ipratropium (Albuterol/ Ipratropium) 3 ml Q4H PRN HHN Shortness of Breath 12/13/17 14:30 12/18/17 14:29 Cefepime HCl 2 gm/ Dextrose 110 ml @ 220 mls/hr DAILY IV 12/13/17 16:00 12/20/17 15:59 12/15/17 09:18 Finasteride (Proscar) 5 mg DAILY ORAL 12/14/17 09:00 01/13/18 08:59 12/15/17 09:18 Heparin Sodium (Porcine) (Heparin 5000 units/ml) 5,000 units EVERY 12 HOURS SUBQ 12/13/17 21:00 01/12/18 20:59 12/15/17 09:20 Morphine Sulfate (Morphine Sulfate) 2 mg Q4H PRN IVP Moderate Pain (Pain Scale 4-6) 12/13/17 14:30 12/20/17 14:29 Ondansetron HCl (Zofran) 4 mg Q6H PRN IVP Nausea & Vomiting 12/13/17 14:30 01/12/18 14:29 Phenazopyridine HCl (Pyridium) 100 mg DAILYPRN PRN ORAL dysuria 12/13/17 14:30 01/12/18 14:29 Polyethylene Glycol (Miralax) 17 gm DAILYPRN PRN ORAL Constipation 12/13/17 14:30 01/12/18 14:29 Quetiapine Fumarate (SEROquel) 12.5 mg Q4H PRN ORAL agitation 12/14/17 21:45 01/13/18 21:44 Sodium Chloride 1,000 ml @ 50 mls/hr Q20H IV 12/14/17 06:45 01/13/18 06:44 12/15/17 05:09 Tamsulosin HCl (Flomax) 0.4 mg BEDTIME ORAL 12/13/17 21:00 01/12/18 20:59 12/14/17 20:47 Temazepam (Restoril) 15 mg HSPRN PRN ORAL Insomnia 12/13/17 21:00 12/20/17 20:59 Vancomycin HCl (Vanco rx to dose) 1 ea DAILY PRN MISC PER RX PROTOCOL 12/13/17 15:45 01/12/18 15:44 Vancomycin/Sodium Chloride 250 ml @ 166.667 mls/hr Q24H IVPB 12/14/17 18:00 12/19/17 17:59 12/14/17 17:07 Verenice Chavez M.D. Dec 15, 2017 10:43
[2017-12-15 12:00] VITALS: BP_SYST 99; BP_DIAS 4; BP_DIAS 42
[2017-12-15 16:00] VITALS: BP 106/58
[2017-12-15 20:00] VITALS: BP 91/54
[2017-12-15] MEDS: Tamsulosin 0.4mg cap ORAL SCH (20:50)
[2017-12-16] VITALS: BP 96/53
[2017-12-16 04:00] VITALS: BP 125/63
--- NOTE | 2017-12-16 06:48 | General Surgery Progress Note ---
General Surgery-Progress Note Subjective Additional Comments no acute events. resting comfortable Objective Last 24 Hour Vital Signs Date Time Temp Pulse Resp B/P (MAP) Pulse Ox O2 Delivery O2 Flow Rate FiO2 12/16/17 04:00 98.2 103 20 125/63 (83) 99 98.2 12/16/17 00:00 98.6 101 20 96/53 (67) 98 98.6 12/15/17 21:20 98.6 12/15/17 21:00 Room Air 12/15/17 20:58 101 22 Room Air 21 12/15/17 20:50 100.6 12/15/17 20:00 100.6 117 20 91/54 (66) 96 100.6 12/15/17 16:00 99.8 113 19 106/58 (74) 97 99.8 12/15/17 12:00 98.2 100 20 99/42 (61) 97 98.2 12/15/17 11:38 104 20 Room Air 21 12/15/17 09:00 Room Air 12/15/17 08:00 98.0 101 20 108/85 (93) 97 98.0 I&O Intake and Output 12/15/17 12/16/17 19:00 07:00 Intake Total 1360 ml 450 ml Output Total 600 ml 400 ml Balance 760 ml 50 ml Intake Oral 600 ml IV Total 760 ml 450 ml Output Urine Total 600 ml 400 ml # Voids 1 Dressing: other Wound: other Drains: none Cardiovascular: RSR Respiratory: clear Abdomen: soft, non-tender, present bowel sounds Extremities: other Laboratory Tests Test 12/15/17 06:55 12/16/17 00:00 White Blood Count 19.9 K/UL (4.8-10.8) H Red Blood Count 3.43 M/UL (4.70-6.10) L Hemoglobin 8.5 G/DL (14.2-18.0) L Hematocrit 27.0 % (42.0-52.0) L Mean Corpuscular Volume 79 FL (80-99) L Mean Corpuscular Hemoglobin 24.9 PG (27.0-31.0) L Mean Corpuscular Hemoglobin Concent 31.7 G/DL (32.0-36.0) L Red Cell Distribution Width 17.0 % (11.6-14.8) H Platelet Count 353 K/UL (150-450) Mean Platelet Volume 6.0 FL (6.5-10.1) L Neutrophils (%) (Auto) % (45.0-75.0) Lymphocytes (%) (Auto) % (20.0-45.0) Monocytes (%) (Auto) % (1.0-10.0) Eosinophils (%) (Auto) % (0.0-3.0) Basophils (%) (Auto) % (0.0-2.0) Differential Total Cells Counted 100 Neutrophils % (Manual) 85 % (45-75) H Lymphocytes % (Manual) 2 % (20-45) L Monocytes % (Manual) 7 % (1-10) Eosinophils % (Manual) 1 % (0-3) Basophils % (Manual) 0 % (0-2) Band Neutrophils 5 % (0-8) Platelet Estimate Adequate Platelet Morphology Normal Hypochromasia 2+ Anisocytosis 1+ Microcytosis 2+ Erythrocyte Sedimentation Rate 13 MM/HR (0-20) Sodium Level 142 MMOL/L (136-145) Potassium Level 3.3 MMOL/L (3.5-5.1) L Chloride Level 110 MMOL/L (98-107) H Carbon Dioxide Level 21 MMOL/L (21-32) Anion Gap 11 mmol/L (5-15) Blood Urea Nitrogen 20 mg/dL (7-18) H Creatinine 0.5 MG/DL (0.55-1.30) L Estimat Glomerular Filtration Rate mL/min (>60) Glucose Level 131 MG/DL (74-106) H Calcium Level 8.9 MG/DL (8.5-10.1) Phosphorus Level 2.6 MG/DL (2.5-4.9) Magnesium Level 2.1 MG/DL (1.8-2.4) Total Bilirubin 0.4 MG/DL (0.2-1.0) Aspartate Amino Transf (AST/SGOT) 67 U/L (15-37) H Alanine Aminotransferase (ALT/SGPT) 79 U/L (12-78) H Alkaline Phosphatase 155 U/L (46-116) H C-Reactive Protein, Quantitative > 70.0 mg/dL (0.00-0.90) H Total Protein 6.9 G/DL (6.4-8.2) Albumin 1.7 G/DL (3.4-5.0) L Globulin 5.2 g/dL Albumin/Globulin Ratio 0.3 (1.0-2.7) L Stool Occult Blood Pending Plan Problems: (1) Sepsis (2) Sacral wound Assessment & Plan: 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 Undermining at 11-3 by 4.3cm @1o'clock. Scattered loose slough noted to wound bed. Borders and periwound dark and indurated.No odor present. no significant drainage noted today. Dark discolored area noted to R trochanter(L)5.4cm x (W)5.6cm with historical scar noted centrally.injured site without induration but pt Stable dry eschar noted to Medial L malleolus(L)1.5cm x (W)3.2cm. Periwound without erythema or induration. Full thickness pressure injury noted to medial L heel (L)3cm x (W)5.1cm with 20 % yellow slough (+) maceration along borders. Slight erythema periwound. DTPI noted to L hallux (L)3.4cm (W)3.7cm. Indurated maroon discoloration to wound bed with red margins. Dark discoloration noted to lateral 5th metatarsal .No evidence of induration noted. 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 Tx.Plan: Cleanse sacral wound with Saline. Loose pack with Hydrogel impregnated Gauze.Cavilon wipe along borders and cover with Biatain drsg Daily and prn. Cleanse wound medial L heel with Saline.Apply Hydrogel to wound bed. Cavilon wipe along borders and periwound. Cover with Biatain drsg Daily and prn. Apply Cavilon wipe to Medial L malleolus and cover with Biatain drsg .Change prn if loose or soiled. Apply Cavilon to R trochanter with each drsg change. Cover with Biatain and Change prn. Apply Cavilon wipe to lateral L5th metatarsal with each drsg.Cover with Biatain and change prn. Air soft mattress. Turn and reposition at Minimum every 2 as tolerated. Please minimize positioning pt on R side side. Off-load pressure from L foot. Jeremias Herr Dec 16, 2017 06:48
[2017-12-16 07:40] LABS: HEMATOCRIT 28.6 % (42.0-52.0); HEMOGLOBIN 8.6 G/DL (14.2-18.0); MEAN CORPUSCULAR VOLUME 78 FL (80-99); PLATELET COUNT 353 K/UL (150-450); RED BLOOD COUNT 3.66 M/UL (4.70-6.10); RED CELL DISTRIBUTION WIDTH 17.8 % (11.6-14.8); WHITE BLOOD COUNT 20.2 K/UL (4.8-10.8)
--- NOTE | 2017-12-16 07:48 | Pulmonology Progress Note ---
Assessment/Plan Assessment/Plan ASSESSMENT Acute encephalopathy sepsis with bacteremia ( likely due to UTI) UTI with Proteus acute kidney injury dehydration anemia of chronic disease hypotension transaminitis prostate CA sacral decub, present on admission severe protein calorie malnutrition functional quadriplegia PLAN OF CARE Med Surg floor antibiotic ID follows , urine cx + Proteus, bl cx 2/4 + GNR gentle IVF monitor electrolytes, renal parameters, correct electrolytes as needed ( today correct K) ,avoid nephrotoxic monitor BP closely O2 to keep pulse ox above 92%, pulmonary toilet CXR in am DVT prophylaxis continue Proscar and Flomax wound care as per wound care nurse recommendation ; not appeared to be infected monitor LFT , probably shock liver due to sepsis , slowly trending down hepatitis panel negative monitor HH with goal to keep Hgb above 7 anemia w/up c/w anemia of chronic disease stool OB pending supportive care dietary eval DNR/DNI status. case discussed and evaluated by supervising physician Subjective Allergies: Coded Allergies: DIVALPROEX SODIUM (Verified Allergy, Unknown, 12/13/17) TERAZOSIN (Verified Allergy, Unknown, 12/13/17) Subjective still with significant leukocytosis , fever last night Objective Last 24 Hour Vital Signs Date Time Temp Pulse Resp B/P (MAP) Pulse Ox O2 Delivery O2 Flow Rate FiO2 12/16/17 04:00 98.2 103 20 125/63 (83) 99 98.2 12/16/17 00:00 98.6 101 20 96/53 (67) 98 98.6 12/15/17 21:20 98.6 12/15/17 21:00 Room Air 12/15/17 20:58 101 22 Room Air 21 12/15/17 20:50 100.6 12/15/17 20:00 100.6 117 20 91/54 (66) 96 100.6 12/15/17 16:00 99.8 113 19 106/58 (74) 97 99.8 12/15/17 12:00 98.2 100 20 99/42 (61) 97 98.2 12/15/17 11:38 104 20 Room Air 21 12/15/17 09:00 Room Air 12/15/17 08:00 98.0 101 20 108/85 (93) 97 98.0 Intake and Output 12/15/17 12/16/17 19:00 07:00 Intake Total 1360 ml 450 ml Output Total 600 ml 400 ml Balance 760 ml 50 ml Intake Oral 600 ml IV Total 760 ml 450 ml Output Urine Total 600 ml 400 ml # Voids 1 Objective General Appearance: cachetic, other - bedridden, frail, elderly contracted AA male HEENT: normocephalic Respiratory/Chest: lungs clear - with moderate air exchange Cardiovascular: no JVD, tachycardia Abdomen: soft, non tender Extremities: no edema Neurologic/Psychiatric: abnormal gait - bedridden , other - contracted Musculoskeletal: atrophy Microbiology Date/Time Source Procedure Growth Status 12/14/17 06:50 Blood Blood Culture - Preliminary Gram Negative Bacillus 1 Resulted 12/14/17 06:40 Blood Blood Culture - Preliminary Gram Negative Bacillus 1 Resulted 12/13/17 14:00 Nasal Nares MRSA Culture - Final NO METHICILLIN RESISTANT STAPH AUREUS... Complete 12/13/17 13:49 Urine,Clean Catch Urine Culture - Final Proteus Mirabilis Complete 12/13/17 14:00 Rectum VRE Culture - Final Enterococcus Faecium - Vre Complete 12/13/17 14:00 Rectum - Final NO CARBAPENEM-RESISTANT ENTEROBACTERI... Complete Laboratory Tests 12/16/17 00:00: Stool Occult Blood [Pending] 12/16/17 07:10: White Blood Count 20.2H, Red Blood Count 3.66L, Hemoglobin 8.6L, Hematocrit 28.6L, Mean Corpuscular Volume 78L, Mean Corpuscular Hemoglobin 23.3L, Mean Corpuscular Hemoglobin Concent 29.9L, Red Cell Distribution Width 17.8H, Platelet Count 353, Mean Platelet Volume 6.0L, Neutrophils (%) (Auto) , Lymphocytes (%) (Auto) , Monocytes (%) (Auto) , Eosinophils (%) (Auto) , Basophils (%) (Auto) , Neutrophils % (Manual) [Pending], Lymphocytes % (Manual) [Pending], Platelet Estimate [Pending], Platelet Morphology [Pending], Sodium Level [Pending], Potassium Level [Pending], Chloride Level [Pending], Carbon Dioxide Level [Pending], Blood Urea Nitrogen [Pending], Creatinine [Pending], Estimat Glomerular Filtration Rate [Pending], Glucose Level [Pending], Calcium Level [Pending], Magnesium Level [Pending], Iron Level [Pending], Unsaturated Iron Binding [Pending], Ferritin [Pending], Vitamin B12 Level [Pending], Folate [Pending] Current Medications Medications (Trade) Dose Ordered Sig/Sina Route PRN Reason Start Time Stop Time Status Last Admin Dose Admin Acetaminophen (Tylenol) 650 mg Q4H PRN ORAL fever (temp>100.5F) 12/13/17 14:30 01/12/18 14:29 12/15/17 20:50 Albuterol/ Ipratropium (Albuterol/ Ipratropium) 3 ml Q4H PRN HHN Shortness of Breath 12/13/17 14:30 12/18/17 14:29 Cefepime HCl 2 gm/ Dextrose 110 ml @ 220 mls/hr DAILY IV 12/13/17 16:00 12/20/17 15:59 12/15/17 09:18 Finasteride (Proscar) 5 mg DAILY ORAL 12/14/17 09:00 01/13/18 08:59 12/15/17 09:18 Heparin Sodium (Porcine) (Heparin 5000 units/ml) 5,000 units EVERY 12 HOURS SUBQ 12/13/17 21:00 01/12/18 20:59 12/15/17 20:53 Morphine Sulfate (Morphine Sulfate) 2 mg Q4H PRN IVP Moderate Pain (Pain Scale 4-6) 12/13/17 14:30 12/20/17 14:29 Ondansetron HCl (Zofran) 4 mg Q6H PRN IVP Nausea & Vomiting 12/13/17 14:30 01/12/18 14:29 Phenazopyridine HCl (Pyridium) 100 mg DAILYPRN PRN ORAL dysuria 12/13/17 14:30 01/12/18 14:29 Polyethylene Glycol (Miralax) 17 gm DAILYPRN PRN ORAL Constipation 12/13/17 14:30 01/12/18 14:29 Quetiapine Fumarate (SEROquel) 12.5 mg Q4H PRN ORAL agitation 12/14/17 21:45 01/13/18 21:44 Sodium Chloride 1,000 ml @ 50 mls/hr Q20H IV 12/14/17 06:45 01/13/18 06:44 12/16/17 01:29 Tamsulosin HCl (Flomax) 0.4 mg BEDTIME ORAL 12/13/17 21:00 01/12/18 20:59 12/15/17 20:50 Temazepam (Restoril) 15 mg HSPRN PRN ORAL Insomnia 12/13/17 21:00 12/20/17 20:59 Alyse Pruitt [employer] Dec 16, 2017 07:48
[2017-12-16 08:00] VITALS: BP 102/69
[2017-12-16 08:13] LABS: ANION GAP 9 mmol/L (5-15); BLOOD UREA NITROGEN 12 mg/dL (7-18); CALCIUM 9.3 MG/DL (8.5-10.1); CARBON DIOXIDE 24 MMOL/L (21-32); CHLORIDE 110 MMOL/L (98-107); CREATININE 0.5 MG/DL (0.55-1.30); FERRITIN 1313 NG/ML (8-388); POTASSIUM 3.6 MMOL/L (3.5-5.1); SODIUM 143 MMOL/L (136-145)
[2017-12-16 08:24] LABS: % IRON SATURATION 15 % (15-50); IRON 19 ug/dL (50-175); TOTAL IRON BINDING CAPACITY 127 ug/dL (250-450)
[2017-12-16] MEDS: Cefepime HCl 2 GM in D5W 110 ML IV SCH (09:11)
[2017-12-16] MEDS: Heparin 5000 units/ml inj SUBQ SCH ×2 (09:14→20:13)
[2017-12-16] MEDS ORDERED: Albuterol/Ipratropium 3ml neb HHN PRN (11:00)
[2017-12-16 12:00] VITALS: BP 114/59
[2017-12-16 16:00] VITALS: BP 118/62
[2017-12-16 20:00] VITALS: BP 127/62
[2017-12-16] MEDS: Tamsulosin 0.4mg cap ORAL SCH (20:12)
[2017-12-17] VITALS: BP 119/65
[2017-12-17 04:00] VITALS: BP 108/52
[2017-12-17 06:40] LABS: ANION GAP 8 mmol/L (5-15); BLOOD UREA NITROGEN 10 mg/dL (7-18); CALCIUM 9.3 MG/DL (8.5-10.1); CARBON DIOXIDE 24 MMOL/L (21-32); CHLORIDE 108 MMOL/L (98-107); CREATININE 0.5 MG/DL (0.55-1.30); POTASSIUM 3.5 MMOL/L (3.5-5.1); SODIUM 140 MMOL/L (136-145)
[2017-12-17 08:00] VITALS: BP 128/70
[2017-12-17] MEDS: Cefepime HCl 2 GM in D5W 110 ML IV SCH (09:07)
[2017-12-17] MEDS: Heparin 5000 units/ml inj SUBQ SCH ×2 (09:08→20:18)
--- NOTE | 2017-12-17 09:22 | Infectious Diseases Prog Note ---
Assessment/Plan Assessment/Plan 87 yo male presenting from a SNF for worse ALOC then usual. Sepsis - 2ry to UTI c/w Gram neg Bacteremia 12/13/17 - UA was positive with WBCs TNTC; ucx P, mirabilis (S Ceftriaxone) BCx 4/4 GNRs 12/13/17 - CXR - No acute disease Leukocytosis - 31 on admit - Down trending Fever - improving Sacral ulcer - Not stageable Not infected at this time No purulent drainage or significant surrounding erythema PMHx - Unknown P: Start Ceftriaxone for Urosepsis D/C Cefepime #4 d/c empiric IV Vancomycin #3 f/u Bcx x2 Monitor CBC and Temps Supportive care We will continue to follow the patient during this hospitalization Subjective Allergies: Coded Allergies: DIVALPROEX SODIUM (Verified Allergy, Unknown, 12/13/17) TERAZOSIN (Verified Allergy, Unknown, 12/13/17) Subjective Afebrile No acute events Labs pending Objective Vital Signs Last 24 Hour Vital Signs Date Time Temp Pulse Resp B/P (MAP) Pulse Ox O2 Delivery O2 Flow Rate FiO2 12/17/17 08:00 98.9 87 18 128/70 (89) 100 98.9 12/17/17 04:00 98.6 98 20 108/52 (70) 95 98.6 12/17/17 00:00 99.9 102 20 119/65 (83) 99 99.9 12/16/17 21:00 Room Air 12/16/17 20:00 99.0 104 20 127/62 (83) 98 99.0 12/16/17 16:00 98.4 99 22 118/62 (80) 99 98.4 12/16/17 12:00 98.2 103 24 114/59 (77) 99 98.2 Height (Feet): 5 Height (Inches): 8.00 Weight (Pounds): 130 Objective Gen: NAD, Following commands HEENT: NCAT, MMM, EOMI, PERR LUNGS: CTAB, No W/C, No Accessory muscle use CARDS: RRR, S1, S2, No M/R/G, ABD: Soft, NT, ND, No R/G, + BS, No HSM, No Masses : Green in place Ext: C/C/E, Pulses 2+ B/L (DP, Rad): NEURO: A/O x O, Strength generally weak. Sensation Grossly intact SKIN:~ warm/dry, No rashes,Sacral ulcer unstageable with undermining - No significant surrounding erythema, no purulent drainage Microbiology Date/Time Source Procedure Growth Status 12/15/17 11:10 Blood Blood Culture - Preliminary NO GROWTH AFTER 24 HOURS Resulted 12/15/17 11:00 Blood Blood Culture - Preliminary NO GROWTH AFTER 24 HOURS Resulted Laboratory Tests Test 12/17/17 05:15 Sodium Level 140 MMOL/L (136-145) Potassium Level 3.5 MMOL/L (3.5-5.1) Chloride Level 108 MMOL/L (98-107) H Carbon Dioxide Level 24 MMOL/L (21-32) Anion Gap 8 mmol/L (5-15) Blood Urea Nitrogen 10 mg/dL (7-18) Creatinine 0.5 MG/DL (0.55-1.30) L Estimat Glomerular Filtration Rate mL/min (>60) Glucose Level 136 MG/DL (74-106) H Calcium Level 9.3 MG/DL (8.5-10.1) Current Medications Medications (Trade) Dose Ordered Sig/Sina Route PRN Reason Start Time Stop Time Status Last Admin Dose Admin Acetaminophen (Tylenol) 650 mg Q4H PRN ORAL fever (temp>100.5F) 12/13/17 14:30 01/12/18 14:29 12/15/17 20:50 Albuterol/ Ipratropium (Albuterol/ Ipratropium) 3 ml Q4H PRN HHN Shortness of Breath 12/16/17 11:00 12/21/17 10:59 Cefepime HCl 2 gm/ Dextrose 110 ml @ 220 mls/hr DAILY IV 12/13/17 16:00 12/20/17 15:59 12/17/17 09:07 Finasteride (Proscar) 5 mg DAILY ORAL 12/14/17 09:00 01/13/18 08:59 12/17/17 09:07 Heparin Sodium (Porcine) (Heparin 5000 units/ml) 5,000 units EVERY 12 HOURS SUBQ 12/13/17 21:00 01/12/18 20:59 12/17/17 09:08 Morphine Sulfate (Morphine Sulfate) 2 mg Q4H PRN IVP Moderate Pain (Pain Scale 4-6) 12/13/17 14:30 12/20/17 14:29 Ondansetron HCl (Zofran) 4 mg Q6H PRN IVP Nausea & Vomiting 12/13/17 14:30 01/12/18 14:29 Phenazopyridine HCl (Pyridium) 100 mg DAILYPRN PRN ORAL dysuria 12/13/17 14:30 01/12/18 14:29 Polyethylene Glycol (Miralax) 17 gm DAILYPRN PRN ORAL Constipation 12/13/17 14:30 01/12/18 14:29 Quetiapine Fumarate (SEROquel) 12.5 mg Q4H PRN ORAL agitation 12/14/17 21:45 01/13/18 21:44 Sodium Chloride 1,000 ml @ 50 mls/hr Q20H IV 12/14/17 06:45 01/13/18 06:44 12/16/17 19:06 Tamsulosin HCl (Flomax) 0.4 mg BEDTIME ORAL 12/13/17 21:00 01/12/18 20:59 12/16/17 20:12 Temazepam (Restoril) 15 mg HSPRN PRN ORAL Insomnia 12/13/17 21:00 12/20/17 20:59 Raf Blanchard MD Dec 17, 2017 09:22
--- NOTE | 2017-12-17 09:44 | Pulmonology Progress Note ---
Assessment/Plan Assessment/Plan ASSESSMENT Acute encephalopathy sepsis with bacteremia ( likely due to UTI) UTI with Proteus acute kidney injury dehydration anemia of chronic disease hypotension transaminitis prostate CA sacral decub, present on admission severe protein calorie malnutrition functional quadriplegia PLAN OF CARE Med Surg floor antibiotic ID follows , urine cx + Proteus, bl cx 2/4 +Proteus, repeated blood cx prel negative gentle IVF monitor electrolytes, renal parameters, correct electrolytes as needed ( today correct K) ,avoid nephrotoxic monitor BP closely O2 to keep pulse ox above 92%, pulmonary toilet CXR in am DVT prophylaxis continue Proscar and Flomax wound care as per wound care nurse recommendation ; not appeared to be infected monitor LFT , probably shock liver due to sepsis , slowly trending down hepatitis panel negative monitor HH with goal to keep Hgb above 7 anemia w/up c/w anemia of chronic disease stool OB pending supportive care dietary eval DNR/DNI status. case discussed and evaluated by supervising physician Subjective Allergies: Coded Allergies: DIVALPROEX SODIUM (Verified Allergy, Unknown, 12/13/17) TERAZOSIN (Verified Allergy, Unknown, 12/13/17) Subjective leukocytosis trending down, still with significant leukocytosis , low grade fever Objective Last 24 Hour Vital Signs Date Time Temp Pulse Resp B/P (MAP) Pulse Ox O2 Delivery O2 Flow Rate FiO2 12/17/17 08:00 98.9 87 18 128/70 (89) 100 98.9 12/17/17 04:00 98.6 98 20 108/52 (70) 95 98.6 12/17/17 00:00 99.9 102 20 119/65 (83) 99 99.9 12/16/17 21:00 Room Air 12/16/17 20:00 99.0 104 20 127/62 (83) 98 99.0 12/16/17 16:00 98.4 99 22 118/62 (80) 99 98.4 12/16/17 12:00 98.2 103 24 114/59 (77) 99 98.2 Intake and Output 12/16/17 12/17/17 19:00 07:00 Intake Total 1255 ml 550 ml Output Total 600 ml 350 ml Balance 655 ml 200 ml Intake Oral 820 ml IV Total 435 ml 550 ml Output Urine Total 600 ml 350 ml Objective General Appearance: cachetic, bedridden, frail, elderly contracted AA male HEENT: normocephalic Respiratory/Chest: lungs clear - with moderate air exchange Cardiovascular: no JVD, tachycardia Abdomen: soft, non tender Extremities: no edema Neurologic/Psychiatric: abnormal gait, bedridden , contracted Musculoskeletal: atrophy Microbiology Date/Time Source Procedure Growth Status 12/15/17 11:10 Blood Blood Culture - Preliminary NO GROWTH AFTER 24 HOURS Resulted 12/15/17 11:00 Blood Blood Culture - Preliminary NO GROWTH AFTER 24 HOURS Resulted Laboratory Tests 12/17/17 05:15: Sodium Level 140, Potassium Level 3.5, Chloride Level 108H, Carbon Dioxide Level 24, Anion Gap 8, Blood Urea Nitrogen 10, Creatinine 0.5L, Estimat Glomerular Filtration Rate , Glucose Level 136H, Calcium Level 9.3 Current Medications Medications (Trade) Dose Ordered Sig/Sina Route PRN Reason Start Time Stop Time Status Last Admin Dose Admin Acetaminophen (Tylenol) 650 mg Q4H PRN ORAL fever (temp>100.5F) 12/13/17 14:30 01/12/18 14:29 12/15/17 20:50 Albuterol/ Ipratropium (Albuterol/ Ipratropium) 3 ml Q4H PRN HHN Shortness of Breath 12/16/17 11:00 12/21/17 10:59 Cefepime HCl 2 gm/ Dextrose 110 ml @ 220 mls/hr DAILY IV 12/13/17 16:00 12/20/17 15:59 12/17/17 09:07 Finasteride (Proscar) 5 mg DAILY ORAL 12/14/17 09:00 01/13/18 08:59 12/17/17 09:07 Heparin Sodium (Porcine) (Heparin 5000 units/ml) 5,000 units EVERY 12 HOURS SUBQ 12/13/17 21:00 01/12/18 20:59 12/17/17 09:08 Morphine Sulfate (Morphine Sulfate) 2 mg Q4H PRN IVP Moderate Pain (Pain Scale 4-6) 12/13/17 14:30 12/20/17 14:29 Ondansetron HCl (Zofran) 4 mg Q6H PRN IVP Nausea & Vomiting 12/13/17 14:30 01/12/18 14:29 Phenazopyridine HCl (Pyridium) 100 mg DAILYPRN PRN ORAL dysuria 12/13/17 14:30 01/12/18 14:29 Polyethylene Glycol (Miralax) 17 gm DAILYPRN PRN ORAL Constipation 12/13/17 14:30 01/12/18 14:29 Quetiapine Fumarate (SEROquel) 12.5 mg Q4H PRN ORAL agitation 12/14/17 21:45 01/13/18 21:44 Sodium Chloride 1,000 ml @ 50 mls/hr Q20H IV 12/14/17 06:45 01/13/18 06:44 12/16/17 19:06 Tamsulosin HCl (Flomax) 0.4 mg BEDTIME ORAL 12/13/17 21:00 01/12/18 20:59 12/16/17 20:12 Temazepam (Restoril) 15 mg HSPRN PRN ORAL Insomnia 12/13/17 21:00 12/20/17 20:59 Alyse Pruitt [employer] Dec 17, 2017 09:44
--- NOTE | 2017-12-17 10:54 | Diagnostic Imaging Report ---
Indication: Cough Technique: One view of the chest Comparison: 12/13/2017 Findings: Old healed right rib fracture deformities again demonstrated. Minimal atelectasis is seen in the infrahilar regions bilaterally. Lungs and pleural spaces are otherwise clear. Heart size is normal. The aorta is tortuous and calcified Impression: No acute process
[2017-12-17 12:00] VITALS: BP 124/68
[2017-12-17 16:00] VITALS: BP 121/70
--- NOTE | 2017-12-17 16:21 | General Progress Note ---
Assessment/Plan Status: stable Assessment/Plan encephalopathy due [place] [facility] [place] -seroquel prn Subjective Date patient seen: Dec 17, 2017 Neurologic/Psychiatric: Reports: anxiety, depressed Allergies: Coded Allergies: DIVALPROEX SODIUM (Verified Allergy, Unknown, 12/13/17) TERAZOSIN (Verified Allergy, Unknown, 12/13/17) Objective Last 24 Hour Vital Signs Date Time Temp Pulse Resp B/P (MAP) Pulse Ox O2 Delivery O2 Flow Rate FiO2 12/17/17 12:00 97.8 82 18 124/68 (86) 99 97.8 12/17/17 09:00 Room Air 12/17/17 08:00 98.9 87 18 128/70 (89) 100 98.9 12/17/17 08:00 103 18 Room Air 21 12/17/17 04:00 98.6 98 20 108/52 (70) 95 98.6 12/17/17 00:00 99.9 102 20 119/65 (83) 99 99.9 12/16/17 21:00 Room Air 12/16/17 20:00 99.0 104 20 127/62 (83) 98 99.0 Intake and Output 12/16/17 12/17/17 19:00 07:00 Intake Total 1255 ml 550 ml Output Total 600 ml 350 ml Balance 655 ml 200 ml Intake Oral 820 ml IV Total 435 ml 550 ml Output Urine Total 600 ml 350 ml Laboratory Tests 12/17/17 05:15: Sodium Level 140, Potassium Level 3.5, Chloride Level 108H, Carbon Dioxide Level 24, Anion Gap 8, Blood Urea Nitrogen 10, Creatinine 0.5L, Estimat Glomerular Filtration Rate , Glucose Level 136H, Calcium Level 9.3 Height (Feet): 5 Height (Inches): 8.00 Weight (Pounds): 130 General Appearance: no apparent distress, alert, confused Neurologic: depressed affect Nixon Barber MD Dec 17, 2017 16:21
[2017-12-17] MEDS: cefTRIAXone 1 GM in D5W 55 ML IVPB SCH (17:04)
[2017-12-17 20:00] VITALS: BP 108/55
[2017-12-17] MEDS: Tamsulosin 0.4mg cap ORAL SCH (20:17)
[2017-12-18] VITALS: BP 94/58
[2017-12-18 04:00] VITALS: BP_SYST 100; BP_SYST 111; BP_DIAS 58; BP_DIAS 61
[2017-12-18] MEDS: cefTRIAXone 1 GM in D5W 55 ML IVPB SCH ×2 (04:31→17:06)
[2017-12-18 08:00] VITALS: BP 127/64
--- NOTE | 2017-12-18 08:11 | Infectious Diseases Prog Note ---
Assessment/Plan Assessment/Plan 87 yo male presenting from a SNF for worse ALOC then usual. Sepsis - 2ry to UTI c/w Gram neg Bacteremia 12/13/17 - UA was positive with WBCs TNTC; ucx P, mirabilis (S Ceftriaxone) BCx 4/4 GNRs 12/13/17 - CXR - No acute disease Leukocytosis - 31 on admit - Down trending Fever - improving Sacral ulcer - Not stageable Not infected at this time No purulent drainage or significant surrounding erythema PMHx - Unknown P: Continue Ceftriaxone #2/10 for Urosepsis - If he continues to improve clinically could switch to PO Cefpodoxime 200mg BID to finish the course. (End date 12/26/17) 9 SP Cefepime #4 and Vancomycin #3 f/u Bcx x2 Monitor CBC and Temps Supportive care We will continue to follow the patient during this hospitalization Subjective Allergies: Coded Allergies: DIVALPROEX SODIUM (Verified Allergy, Unknown, 12/13/17) TERAZOSIN (Verified Allergy, Unknown, 12/13/17) Subjective Afebrile No acute events Labs pending for today Objective Vital Signs Last 24 Hour Vital Signs Date Time Temp Pulse Resp B/P (MAP) Pulse Ox O2 Delivery O2 Flow Rate FiO2 12/18/17 04:00 99.2 110 18 100/58 (72) 98 99.2 12/18/17 04:00 99.2 110 18 100/58 (72) 98 99.2 12/18/17 00:00 99.5 105 20 94/58 (70) 98 99.5 12/17/17 21:17 Room Air 12/17/17 20:00 99.3 98 18 108/55 (72) 98 99.3 12/17/17 19:59 99 18 Room Air 21 12/17/17 16:00 98.0 79 18 121/70 (87) 98 98.0 12/17/17 12:00 97.8 82 18 124/68 (86) 99 97.8 12/17/17 09:00 Room Air Height (Feet): 5 Height (Inches): 8.00 Weight (Pounds): 130 Objective Gen: NAD, Following commands HEENT: NCAT, MMM, EOMI, No scleral icterus LUNGS: CTAB, No W/C, No Accessory muscle use CARDS: RRR, S1, S2, No M/R/G, ABD: Soft, NT, ND, No R/G, + BS, No HSM, No Masses : Green in place Ext: C/C/E, Pulses 2+ B/L (DP, Rad): NEURO: A/O x O, Strength generally weak. Sensation Grossly intact SKIN:~ warm/dry, No rashes,Sacral ulcer unstageable with undermining - No significant surrounding erythema, no purulent drainage Microbiology Date/Time Source Procedure Growth Status 12/15/17 11:10 Blood Blood Culture - Preliminary NO GROWTH AFTER 48 HOURS Resulted 12/15/17 11:00 Blood Blood Culture - Preliminary NO GROWTH AFTER 48 HOURS Resulted Current Medications Medications (Trade) Dose Ordered Sig/Sina Route PRN Reason Start Time Stop Time Status Last Admin Dose Admin Acetaminophen (Tylenol) 650 mg Q4H PRN ORAL fever (temp>100.5F) 12/13/17 14:30 01/12/18 14:29 12/15/17 20:50 Albuterol/ Ipratropium (Albuterol/ Ipratropium) 3 ml Q4H PRN HHN Shortness of Breath 12/16/17 11:00 12/21/17 10:59 Ceftriaxone Sodium 1 gm/ Dextrose 55 ml @ 110 mls/hr Q12H IVPB 12/17/17 17:00 12/24/17 16:59 12/18/17 04:31 Finasteride (Proscar) 5 mg DAILY ORAL 12/14/17 09:00 01/13/18 08:59 12/17/17 09:07 Heparin Sodium (Porcine) (Heparin 5000 units/ml) 5,000 units EVERY 12 HOURS SUBQ 12/13/17 21:00 01/12/18 20:59 12/17/17 20:18 Morphine Sulfate (Morphine Sulfate) 2 mg Q4H PRN IVP Moderate Pain (Pain Scale 4-6) 12/13/17 14:30 12/20/17 14:29 Ondansetron HCl (Zofran) 4 mg Q6H PRN IVP Nausea & Vomiting 12/13/17 14:30 01/12/18 14:29 Phenazopyridine HCl (Pyridium) 100 mg DAILYPRN PRN ORAL dysuria 12/13/17 14:30 01/12/18 14:29 Polyethylene Glycol (Miralax) 17 gm DAILYPRN PRN ORAL Constipation 12/13/17 14:30 01/12/18 14:29 Quetiapine Fumarate (SEROquel) 12.5 mg Q4H PRN ORAL agitation 12/14/17 21:45 01/13/18 21:44 Sodium Chloride 1,000 ml @ 50 mls/hr Q20H IV 12/14/17 06:45 01/13/18 06:44 12/17/17 14:39 Tamsulosin HCl (Flomax) 0.4 mg BEDTIME ORAL 12/13/17 21:00 01/12/18 20:59 12/17/17 20:17 Temazepam (Restoril) 15 mg HSPRN PRN ORAL Insomnia 12/13/17 21:00 12/20/17 20:59 Raf Blanchard MD Dec 18, 2017 08:11
[2017-12-18] MEDS: Heparin 5000 units/ml inj SUBQ SCH ×2 (09:33→20:22)
[2017-12-18 09:51] LABS: HEMATOCRIT 28.4 % (42.0-52.0); HEMOGLOBIN 8.8 G/DL (14.2-18.0); MEAN CORPUSCULAR VOLUME 78 FL (80-99); PLATELET COUNT 373 K/UL (150-450); RED BLOOD COUNT 3.66 M/UL (4.70-6.10); RED CELL DISTRIBUTION WIDTH 17.8 % (11.6-14.8)
[2017-12-18 10:20] LABS: ANION GAP 9 mmol/L (5-15); BLOOD UREA NITROGEN 12 mg/dL (7-18); CALCIUM 9.2 MG/DL (8.5-10.1); CARBON DIOXIDE 24 MMOL/L (21-32); CHLORIDE 106 MMOL/L (98-107); CREATININE 0.5 MG/DL (0.55-1.30); POTASSIUM 3.4 MMOL/L (3.5-5.1); SODIUM 139 MMOL/L (136-145)
[2017-12-18 12:00] VITALS: BP 123/55
--- NOTE | 2017-12-18 12:18 | General Surgery Progress Note ---
General Surgery-Progress Note Subjective Additional Comments leukocytosis worsening. bacteremia. on ABX Objective Last 24 Hour Vital Signs Date Time Temp Pulse Resp B/P (MAP) Pulse Ox O2 Delivery O2 Flow Rate FiO2 12/18/17 09:00 Room Air 12/18/17 08:00 98.6 116 18 127/64 (85) 96 98.6 12/18/17 07:56 96 18 Room Air 21 12/18/17 04:00 99.2 110 18 100/58 (72) 98 99.2 12/18/17 04:00 99.2 110 18 100/58 (72) 98 99.2 12/18/17 00:00 99.5 105 20 94/58 (70) 98 99.5 12/17/17 21:17 Room Air 12/17/17 20:00 99.3 98 18 108/55 (72) 98 99.3 12/17/17 19:59 99 18 Room Air 21 12/17/17 16:00 98.0 79 18 121/70 (87) 98 98.0 I&O Intake and Output 12/17/17 12/18/17 19:00 07:00 Intake Total 1515 ml 655 ml Output Total 600 ml 50 ml Balance 915 ml 605 ml Intake Oral 800 ml IV Total 715 ml 655 ml Output Urine Total 600 ml 50 ml # Bowel Movements 2 Dressing: dry Wound: other Cardiovascular: RSR Respiratory: clear Abdomen: soft, flat, present bowel sounds Extremities: other Laboratory Tests Test 12/18/17 09:30 White Blood Count 23.0 K/UL (4.8-10.8) *H Red Blood Count 3.66 M/UL (4.70-6.10) L Hemoglobin 8.8 G/DL (14.2-18.0) L Hematocrit 28.4 % (42.0-52.0) L Mean Corpuscular Volume 78 FL (80-99) L Mean Corpuscular Hemoglobin 24.0 PG (27.0-31.0) L Mean Corpuscular Hemoglobin Concent 31.0 G/DL (32.0-36.0) L Red Cell Distribution Width 17.8 % (11.6-14.8) H Platelet Count 373 K/UL (150-450) Mean Platelet Volume 6.3 FL (6.5-10.1) L Neutrophils (%) (Auto) % (45.0-75.0) Lymphocytes (%) (Auto) % (20.0-45.0) Monocytes (%) (Auto) % (1.0-10.0) Eosinophils (%) (Auto) % (0.0-3.0) Basophils (%) (Auto) % (0.0-2.0) Differential Total Cells Counted 100 Neutrophils % (Manual) 82 % (45-75) H Lymphocytes % (Manual) 10 % (20-45) L Monocytes % (Manual) 2 % (1-10) Eosinophils % (Manual) 0 % (0-3) Basophils % (Manual) 0 % (0-2) Band Neutrophils 6 % (0-8) Platelet Estimate Adequate Platelet Morphology Normal Hypochromasia 2+ Microcytosis 2+ Sodium Level 139 MMOL/L (136-145) Potassium Level 3.4 MMOL/L (3.5-5.1) L Chloride Level 106 MMOL/L (98-107) Carbon Dioxide Level 24 MMOL/L (21-32) Anion Gap 9 mmol/L (5-15) Blood Urea Nitrogen 12 mg/dL (7-18) Creatinine 0.5 MG/DL (0.55-1.30) L Estimat Glomerular Filtration Rate mL/min (>60) Glucose Level 144 MG/DL (74-106) H Calcium Level 9.2 MG/DL (8.5-10.1) Plan Problems: (1) Sepsis (2) Sacral wound Assessment & Plan: 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 Undermining at 11-3 by 4.3cm @1o'clock. Scattered loose slough noted to wound bed. Borders and periwound dark and indurated.No odor present. no significant drainage noted Dark discolored area noted to R trochanter(L)5.4cm x (W)5.6cm with historical scar noted centrally.injured site without induration but pt Stable dry eschar noted to Medial L malleolus(L)1.5cm x (W)3.2cm. Periwound without erythema or induration. Full thickness pressure injury noted to medial L heel (L)3cm x (W)5.1cm with 20 % yellow slough (+) maceration along borders. Slight erythema periwound. DTPI noted to L hallux (L)3.4cm (W)3.7cm. Indurated maroon discoloration to wound bed with red margins. Dark discoloration noted to lateral 5th metatarsal .No evidence of induration noted. 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 Tx.Plan: Cleanse sacral wound with Saline. Loose pack with Hydrogel impregnated Gauze.Cavilon wipe along borders and cover with Biatain drsg Daily and prn. Cleanse wound medial L heel with Saline.Apply Hydrogel to wound bed. Cavilon wipe along borders and periwound. Cover with Biatain drsg Daily and prn. Apply Cavilon wipe to Medial L malleolus and cover with Biatain drsg .Change prn if loose or soiled. Apply Cavilon to R trochanter with each drsg change. Cover with Biatain and Change prn. Apply Cavilon wipe to lateral L5th metatarsal with each drsg.Cover with Biatain and change prn. Air soft mattress. Turn and reposition at Minimum every 2 as tolerated. Please minimize positioning pt on R side side. Off-load pressure from L foot. Jeremias Herr Dec 18, 2017 12:18
--- NOTE | 2017-12-18 12:43 | Pulmonology Progress Note ---
Assessment/Plan Problems: (1) Sepsis (2) ATN (acute tubular necrosis) (3) Advanced dementia (4) Severe protein-calorie malnutrition (5) Sacral wound Assessment/Plan Heart rate better still borderline hypotensive wbc decreasing continue abx talked to pts , who is agreeable with hospice Subjective ROS Limited/Unobtainable: No Constitutional: Reports: no symptoms HEENT: Repors: no symptoms Respiratory: Reports: no symptoms Allergies: Coded Allergies: DIVALPROEX SODIUM (Verified Allergy, Unknown, 12/13/17) TERAZOSIN (Verified Allergy, Unknown, 12/13/17) Objective Last 24 Hour Vital Signs Date Time Temp Pulse Resp B/P (MAP) Pulse Ox O2 Delivery O2 Flow Rate FiO2 12/18/17 12:00 98.5 110 18 123/55 (77) 97 98.5 12/18/17 09:00 Room Air 12/18/17 08:00 98.6 116 18 127/64 (85) 96 98.6 12/18/17 07:56 96 18 Room Air 21 12/18/17 04:00 99.2 110 18 100/58 (72) 98 99.2 12/18/17 04:00 99.2 110 18 100/58 (72) 98 99.2 12/18/17 00:00 99.5 105 20 94/58 (70) 98 99.5 12/17/17 21:17 Room Air 12/17/17 20:00 99.3 98 18 108/55 (72) 98 99.3 12/17/17 19:59 99 18 Room Air 21 12/17/17 16:00 98.0 79 18 121/70 (87) 98 98.0 Intake and Output 12/17/17 12/18/17 19:00 07:00 Intake Total 1515 ml 655 ml Output Total 600 ml 50 ml Balance 915 ml 605 ml Intake Oral 800 ml IV Total 715 ml 655 ml Output Urine Total 600 ml 50 ml # Bowel Movements 2 General Appearance: cachetic HEENT: normocephalic, atraumatic Respiratory/Chest: chest wall non-tender, lungs clear Cardiovascular: normal peripheral pulses, normal rate Abdomen: normal bowel sounds, no organomegaly Genitourinary: normal external genitalia Extremities: no clubbing Skin: no lesions Laboratory Tests 12/18/17 09:30: White Blood Count 23.0*H, Red Blood Count 3.66L, Hemoglobin 8.8L, Hematocrit 28.4L, Mean Corpuscular Volume 78L, Mean Corpuscular Hemoglobin 24.0L, Mean Corpuscular Hemoglobin Concent 31.0L, Red Cell Distribution Width 17.8H, Platelet Count 373, Mean Platelet Volume 6.3L, Neutrophils (%) (Auto) , Lymphocytes (%) (Auto) , Monocytes (%) (Auto) , Eosinophils (%) (Auto) , Basophils (%) (Auto) , Differential Total Cells Counted 100, Neutrophils % ( Manual) 82H, Lymphocytes % (Manual) 10L, Monocytes % (Manual) 2, Eosinophils % ( Manual) 0, Basophils % (Manual) 0, Band Neutrophils 6, Platelet Estimate Adequate, Platelet Morphology Normal, Hypochromasia 2+, Microcytosis 2+, Sodium Level 139, Potassium Level 3.4L, Chloride Level 106, Carbon Dioxide Level 24, Anion Gap 9, Blood Urea Nitrogen 12, Creatinine 0.5L, Estimat Glomerular Filtration Rate , Glucose Level 144H, Calcium Level 9.2 Current Medications Medications (Trade) Dose Ordered Sig/Sina Route PRN Reason Start Time Stop Time Status Last Admin Dose Admin Acetaminophen (Tylenol) 650 mg Q4H PRN ORAL fever (temp>100.5F) 12/13/17 14:30 01/12/18 14:29 12/15/17 20:50 Albuterol/ Ipratropium (Albuterol/ Ipratropium) 3 ml Q4H PRN HHN Shortness of Breath 12/16/17 11:00 12/21/17 10:59 Ceftriaxone Sodium 1 gm/ Dextrose 55 ml @ 110 mls/hr Q12H IVPB 12/17/17 17:00 12/24/17 16:59 12/18/17 04:31 Finasteride (Proscar) 5 mg DAILY ORAL 12/14/17 09:00 01/13/18 08:59 12/18/17 09:32 Heparin Sodium (Porcine) (Heparin 5000 units/ml) 5,000 units EVERY 12 HOURS SUBQ 12/13/17 21:00 01/12/18 20:59 12/18/17 09:33 Morphine Sulfate (Morphine Sulfate) 2 mg Q4H PRN IVP Moderate Pain (Pain Scale 4-6) 12/13/17 14:30 12/20/17 14:29 Ondansetron HCl (Zofran) 4 mg Q6H PRN IVP Nausea & Vomiting 12/13/17 14:30 01/12/18 14:29 Phenazopyridine HCl (Pyridium) 100 mg DAILYPRN PRN ORAL dysuria 12/13/17 14:30 01/12/18 14:29 Polyethylene Glycol (Miralax) 17 gm DAILYPRN PRN ORAL Constipation 12/13/17 14:30 01/12/18 14:29 Quetiapine Fumarate (SEROquel) 12.5 mg Q4H PRN ORAL agitation 12/14/17 21:45 01/13/18 21:44 Sodium Chloride 1,000 ml @ 50 mls/hr Q20H IV 12/14/17 06:45 01/13/18 06:44 12/17/17 14:39 Tamsulosin HCl (Flomax) 0.4 mg BEDTIME ORAL 12/13/17 21:00 01/12/18 20:59 12/17/17 20:17 Temazepam (Restoril) 15 mg HSPRN PRN ORAL Insomnia 12/13/17 21:00 12/20/17 20:59 Jossie Vela MD Dec 18, 2017 12:43
[2017-12-18 16:00] VITALS: BP 125/60
[2017-12-18 19:36] VITALS: BP_SYST 103; BP_SYST 99; BP_DIAS 60
--- NOTE | 2017-12-18 19:38 | General Progress Note ---
Assessment/Plan Status: stable, progressing Assessment/Plan [place] [facility] [place] -seroquel prn Subjective Date patient seen: Dec 18, 2017 Neurologic/Psychiatric: Reports: anxiety, depressed Allergies: Coded Allergies: DIVALPROEX SODIUM (Verified Allergy, Unknown, 12/13/17) TERAZOSIN (Verified Allergy, Unknown, 12/13/17) Objective Last 24 Hour Vital Signs Date Time Temp Pulse Resp B/P (MAP) Pulse Ox O2 Delivery O2 Flow Rate FiO2 12/18/17 19:36 99.3 68 17 99/60 (73) 91 99.3 12/18/17 16:00 98.8 113 18 125/60 (81) 97 98.8 12/18/17 12:00 98.5 110 18 123/55 (77) 97 98.5 12/18/17 09:00 Room Air 12/18/17 08:00 98.6 116 18 127/64 (85) 96 98.6 12/18/17 07:56 96 18 Room Air 21 12/18/17 04:00 99.2 110 18 100/58 (72) 98 99.2 12/18/17 04:00 99.2 110 18 100/58 (72) 98 99.2 12/18/17 00:00 99.5 105 20 94/58 (70) 98 99.5 12/17/17 21:17 Room Air 12/17/17 20:00 99.3 98 18 108/55 (72) 98 99.3 12/17/17 19:59 99 18 Room Air 21 Intake and Output 12/17/17 12/18/17 19:00 07:00 Intake Total 1515 ml 655 ml Output Total 600 ml 50 ml Balance 915 ml 605 ml Intake Oral 800 ml IV Total 715 ml 655 ml Output Urine Total 600 ml 50 ml # Bowel Movements 2 Laboratory Tests 12/18/17 09:30: White Blood Count 23.0*H, Red Blood Count 3.66L, Hemoglobin 8.8L, Hematocrit 28.4L, Mean Corpuscular Volume 78L, Mean Corpuscular Hemoglobin 24.0L, Mean Corpuscular Hemoglobin Concent 31.0L, Red Cell Distribution Width 17.8H, Platelet Count 373, Mean Platelet Volume 6.3L, Neutrophils (%) (Auto) , Lymphocytes (%) (Auto) , Monocytes (%) (Auto) , Eosinophils (%) (Auto) , Basophils (%) (Auto) , Differential Total Cells Counted 100, Neutrophils % ( Manual) 82H, Lymphocytes % (Manual) 10L, Monocytes % (Manual) 2, Eosinophils % ( Manual) 0, Basophils % (Manual) 0, Band Neutrophils 6, Platelet Estimate Adequate, Platelet Morphology Normal, Hypochromasia 2+, Microcytosis 2+, Sodium Level 139, Potassium Level 3.4L, Chloride Level 106, Carbon Dioxide Level 24, Anion Gap 9, Blood Urea Nitrogen 12, Creatinine 0.5L, Estimat Glomerular Filtration Rate , Glucose Level 144H, Calcium Level 9.2 Height (Feet): 5 Height (Inches): 8.00 Weight (Pounds): 130 General Appearance: no apparent distress, alert, confused Nixon Barber MD Dec 18, 2017 19:38
[2017-12-18] MEDS: Tamsulosin 0.4mg cap ORAL SCH (20:21)
[2017-12-19 00:16] VITALS: BP 117/58
[2017-12-19 04:21] VITALS: BP 110/68
[2017-12-19] MEDS: cefTRIAXone 1 GM in D5W 55 ML IVPB SCH ×2 (04:32→16:58)
[2017-12-19 08:00] VITALS: BP 107/60
[2017-12-19] MEDS: Heparin 5000 units/ml inj SUBQ SCH (08:18)
--- NOTE | 2017-12-19 10:03 | Infectious Diseases Prog Note ---
Assessment/Plan Assessment/Plan 87 yo male presenting from a SNF for worse ALOC then usual. Sepsis - 2ry to UTI c/w Gram neg Bacteremia 12/13/17 - UA was positive with WBCs TNTC; ucx P, mirabilis (S Ceftriaxone) BCx / GNRs 12/13/17 - CXR - No acute disease Leukocytosis - 31 on admit - Has been down trending Fever - Resolved Sacral ulcer - Stage 4 Not infected at this time - Spoke with wound care who agrees No purulent drainage or significant surrounding erythema PMHx - Unknown P: Increased leukocytosis could be 2/2 cleaning of the ulcer by surgery Continue Ceftriaxone #2/10 for Urosepsis - If he continues to improve clinically and leukocytosis resolves could switch to PO Cefpodoxime 200mg BID to finish the course. (End date 12/26/17) 12/17 SP Cefepime #4 and Vancomycin #[address] abd/pel to look for kidney abscess and evaluate extent of sacral ulcer if leukocytosis not downtrending again tomorrow Monitor CBC and Temps Supportive care We will continue to follow the patient during this hospitalization Subjective Allergies: Coded Allergies: DIVALPROEX SODIUM (Verified Allergy, Unknown, 12/13/17) TERAZOSIN (Verified Allergy, Unknown, 12/13/17) Subjective Afebrile No acute events Seen by surgery yesterday Sacral ulcer cleaned. Objective Vital Signs Last 24 Hour Vital Signs Date Time Temp Pulse Resp B/P (MAP) Pulse Ox O2 Delivery O2 Flow Rate FiO2 12/19/17 09:00 Room Air 12/19/17 08:33 99 18 Room Air 21 12/19/17 08:00 98.5 107 20 107/60 (76) 97 98.5 12/19/17 04:21 98.4 103 15 110/68 (82) 100 98.4 12/19/17 00:16 96.6 100 15 117/58 (77) 99 96.6 12/18/17 20:59 97 18 Room Air 21 12/18/17 20:40 Room Air 12/18/17 19:36 99.3 68 17 99/60 (73) 91 99.3 12/18/17 16:00 98.8 113 18 125/60 (81) 97 98.8 12/18/17 12:00 98.5 110 18 123/55 (77) 97 98.5 Height (Feet): 5 Height (Inches): 8.00 Weight (Pounds): 129 Objective Gen: NAD, Following commands HEENT: NCAT, MMM, EOMI, No scleral icterus LUNGS: CTAB, No W/C, No Accessory muscle use CARDS: RRR, S1, S2, No M/R/G, ABD: Soft, NT, ND, No R/G, + BS, No HSM, No Masses : Green in place Ext: C/C/E, Pulses 2+ B/L (DP, Rad): NEURO: A/O x 1 (Name), Strength generally weak. Sensation Grossly intact SKIN: warm/dry, No rashes,Sacral ulcer unstageable with undermining - No significant surrounding erythema, no purulent drainage Current Medications Medications (Trade) Dose Ordered Sig/Sina Route PRN Reason Start Time Stop Time Status Last Admin Dose Admin Acetaminophen (Tylenol) 650 mg Q4H PRN ORAL fever (temp>100.5F) 12/13/17 14:30 01/12/18 14:29 12/15/17 20:50 Albuterol/ Ipratropium (Albuterol/ Ipratropium) 3 ml Q4H PRN HHN Shortness of Breath 12/16/17 11:00 12/21/17 10:59 Ceftriaxone Sodium 1 gm/ Dextrose 55 ml @ 110 mls/hr Q12H IVPB 12/17/17 17:00 12/24/17 16:59 12/19/17 04:32 Finasteride (Proscar) 5 mg DAILY ORAL 12/14/17 09:00 01/13/18 08:59 12/19/17 08:15 Heparin Sodium (Porcine) (Heparin 5000 units/ml) 5,000 units EVERY 12 HOURS SUBQ 12/13/17 21:00 01/12/18 20:59 12/19/17 08:18 Morphine Sulfate (Morphine Sulfate) 2 mg Q4H PRN IVP Moderate Pain (Pain Scale 4-6) 12/13/17 14:30 12/20/17 14:29 Ondansetron HCl (Zofran) 4 mg Q6H PRN IVP Nausea & Vomiting 12/13/17 14:30 01/12/18 14:29 Phenazopyridine HCl (Pyridium) 100 mg DAILYPRN PRN ORAL dysuria 12/13/17 14:30 01/12/18 14:29 Polyethylene Glycol (Miralax) 17 gm DAILYPRN PRN ORAL Constipation 12/13/17 14:30 01/12/18 14:29 Quetiapine Fumarate (SEROquel) 12.5 mg Q4H PRN ORAL agitation 12/14/17 21:45 01/13/18 21:44 Sodium Chloride 1,000 ml @ 50 mls/hr Q20H IV 12/14/17 06:45 01/13/18 06:44 12/18/17 15:30 Tamsulosin HCl (Flomax) 0.4 mg BEDTIME ORAL 12/13/17 21:00 01/12/18 20:59 12/17/17 20:17 Temazepam (Restoril) 15 mg HSPRN PRN ORAL Insomnia 12/13/17 21:00 12/20/17 20:59 Raf Blanchard MD Dec 19, 2017 10:03
[2017-12-19 12:00] VITALS: BP 109/60
--- NOTE | 2017-12-19 12:42 | Pulmonology Progress Note ---
Assessment/Plan Problems: (1) Sepsis (2) ATN (acute tubular necrosis) (3) Advanced dementia (4) Severe protein-calorie malnutrition (5) Sacral wound Assessment/Plan Heart rate better, still tachy still borderline hypotensive wbc decreasing continue abx iv fluids check new cultures dc planning once new cultures are negative and wbc is lower Subjective ROS Limited/Unobtainable: No Interval Events: more awake Allergies: Coded Allergies: DIVALPROEX SODIUM (Verified Allergy, Unknown, 12/13/17) TERAZOSIN (Verified Allergy, Unknown, 12/13/17) Objective Last 24 Hour Vital Signs Date Time Temp Pulse Resp B/P (MAP) Pulse Ox O2 Delivery O2 Flow Rate FiO2 12/19/17 12:00 97.9 113 20 109/60 (76) 90 97.9 12/19/17 09:00 Room Air 12/19/17 08:33 99 18 Room Air 21 12/19/17 08:00 98.5 107 20 107/60 (76) 97 98.5 12/19/17 04:21 98.4 103 15 110/68 (82) 100 98.4 12/19/17 00:16 96.6 100 15 117/58 (77) 99 96.6 12/18/17 20:59 97 18 Room Air 21 12/18/17 20:40 Room Air 12/18/17 19:36 99.3 68 17 99/60 (73) 91 99.3 12/18/17 16:00 98.8 113 18 125/60 (81) 97 98.8 Intake and Output 12/18/17 12/19/17 19:00 07:00 Intake Total 765 ml 655 ml Output Total 600 ml 250 ml Balance 165 ml 405 ml Intake Oral 360 ml IV Total 405 ml 655 ml Output Urine Total 600 ml 250 ml # Bowel Movements 1 General Appearance: cachetic HEENT: normocephalic, atraumatic Respiratory/Chest: chest wall non-tender, normal breath sounds Cardiovascular: normal peripheral pulses, no gallop/murmur Abdomen: soft, non tender Genitourinary: normal external genitalia Extremities: no clubbing Current Medications Medications (Trade) Dose Ordered Sig/Sina Route PRN Reason Start Time Stop Time Status Last Admin Dose Admin Acetaminophen (Tylenol) 650 mg Q4H PRN ORAL fever (temp>100.5F) 12/13/17 14:30 01/12/18 14:29 12/15/17 20:50 Albuterol/ Ipratropium (Albuterol/ Ipratropium) 3 ml Q4H PRN HHN Shortness of Breath 12/16/17 11:00 12/21/17 10:59 Ceftriaxone Sodium 1 gm/ Dextrose 55 ml @ 110 mls/hr Q12H IVPB 12/17/17 17:00 12/24/17 16:59 12/19/17 04:32 Finasteride (Proscar) 5 mg DAILY ORAL 12/14/17 09:00 01/13/18 08:59 12/19/17 08:15 Heparin Sodium (Porcine) (Heparin 5000 units/ml) 5,000 units EVERY 12 HOURS SUBQ 12/13/17 21:00 01/12/18 20:59 12/19/17 08:18 Morphine Sulfate (Morphine Sulfate) 2 mg Q4H PRN IVP Moderate Pain (Pain Scale 4-6) 12/13/17 14:30 12/20/17 14:29 Ondansetron HCl (Zofran) 4 mg Q6H PRN IVP Nausea & Vomiting 12/13/17 14:30 01/12/18 14:29 12/19/17 11:06 Phenazopyridine HCl (Pyridium) 100 mg DAILYPRN PRN ORAL dysuria 12/13/17 14:30 01/12/18 14:29 Polyethylene Glycol (Miralax) 17 gm DAILYPRN PRN ORAL Constipation 12/13/17 14:30 01/12/18 14:29 Quetiapine Fumarate (SEROquel) 12.5 mg Q4H PRN ORAL agitation 12/14/17 21:45 01/13/18 21:44 Sodium Chloride 1,000 ml @ 50 mls/hr Q20H IV 12/14/17 06:45 01/13/18 06:44 12/18/17 15:30 Tamsulosin HCl (Flomax) 0.4 mg BEDTIME ORAL 12/13/17 21:00 01/12/18 20:59 12/17/17 20:17 Temazepam (Restoril) 15 mg HSPRN PRN ORAL Insomnia 12/13/17 21:00 12/20/17 20:59 Jossie Vela MD Dec 19, 2017 12:42
--- NOTE | 2017-12-19 14:20 | General Surgery Progress Note ---
General Surgery-Progress Note Subjective Additional Comments leukocytosis worsening. c/o abdominal pain. foul odor from wound Objective Last 24 Hour Vital Signs Date Time Temp Pulse Resp B/P (MAP) Pulse Ox O2 Delivery O2 Flow Rate FiO2 12/19/17 12:00 97.9 113 20 109/60 (76) 90 97.9 12/19/17 09:00 Room Air 12/19/17 08:33 99 18 Room Air 21 12/19/17 08:00 98.5 107 20 107/60 (76) 97 98.5 12/19/17 04:21 98.4 103 15 110/68 (82) 100 98.4 12/19/17 00:16 96.6 100 15 117/58 (77) 99 96.6 12/18/17 20:59 97 18 Room Air 21 12/18/17 20:40 Room Air 12/18/17 19:36 99.3 68 17 99/60 (73) 91 99.3 12/18/17 16:00 98.8 113 18 125/60 (81) 97 98.8 I&O Intake and Output 12/18/17 12/19/17 19:00 07:00 Intake Total 765 ml 655 ml Output Total 600 ml 250 ml Balance 165 ml 405 ml Intake Oral 360 ml IV Total 405 ml 655 ml Output Urine Total 600 ml 250 ml # Bowel Movements 1 Dressing: saturated Wound: other Drains: other Cardiovascular: RSR Respiratory: clear Abdomen: soft, tenderness, present bowel sounds Extremities: other Plan Problems: (1) Sepsis Assessment & Plan: Leukocytosis worsening. UTI , Bacteremia, elevated lft's, poor sacral ulcer stage IV -switch to Dakin's for sacral wound -Ultrasound abd eval GB -trend labs -cont IV abx appreciate ID input (2) Sacral wound Assessment & Plan: Stage IV Full thickness pressure injury to sacrum (L)12 x(W) 12.5cm x(D)1.1cm. Undermining at 11-3 by 4.3cm @1o'clock. Scattered loose slough noted to wound bed. Borders and periwound dark and indurated.now with odor . no significant drainage noted Dark discolored area noted to R trochanter(L)5.4cm x (W)5.6cm with historical scar noted centrally.injured site without induration but pt Stable dry eschar noted to Medial L malleolus(L)1.5cm x (W)3.2cm. Periwound without erythema or induration. Full thickness pressure injury noted to medial L heel (L)3cm x (W)5.1cm with 20 % yellow slough (+) maceration along borders. Slight erythema periwound. DTPI noted to L hallux (L)3.4cm (W)3.7cm. Indurated maroon discoloration to wound bed with red margins. Dark discoloration noted to lateral 5th metatarsal .No evidence of induration noted. 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 Tx.Plan: Cleanse sacral wound with Saline. Loose pack with Hydrogel impregnated Gauze.Cavilon wipe along borders and cover with Biatain drsg Daily and prn. Dakin's 0.25% BID. Cleanse wound medial L heel with Saline.Apply Hydrogel to wound bed. Cavilon wipe along borders and periwound. Cover with Biatain drsg Daily and prn. Apply Cavilon wipe to Medial L malleolus and cover with Biatain drsg .Change prn if loose or soiled. Apply Cavilon to R trochanter with each drsg change. Cover with Biatain and Change prn. Apply Cavilon wipe to lateral L5th metatarsal with each drsg.Cover with Biatain and change prn. Air soft mattress. Turn and reposition at Minimum every 2 as tolerated. Please minimize positioning pt on R side side. Off-load pressure from L foot. Jeremias Herr Dec 19, 2017 14:20
--- NOTE | 2017-12-19 16:32 | Diagnostic Imaging Report ---
Indication: Abdominal tenderness, leukocytosis and abnormal liver function tests Technique: Li-scale and duplex images of the upper abdomen were obtained Comparison: none Findings: Exam is limited due to bowel gas, patient body habitus Gallbladder nondistended, patient was not nothing by mouth. No definite stones. Common bile duct measures 5 mm in diameter. No intrahepatic biliary ductal dilatation. Liver demonstrates normal echogenicity, no focal abnormality. Portal vein and hepatic veins are patent. Pancreas is unremarkable. Spleen is unremarkable. Left kidney measures 7.6 cm in length. Right kidney measures 8.6 cm length. Both kidneys demonstrate normal echogenicity. There is no hydronephrosis. Cysts are seen in both kidneys, largest on the right measuring 5.1 cm in diameter. . Non-aneurysmal abdominal aorta . Impression: Somewhat limited exam, as described Contracted gallbladder, no definite stones. Negative for dilated ducts Bilateral renal cysts incidentally noted
[2017-12-19] MEDS ORDERED: Tubing IV Secondary IV ONE (18:14)
[2017-12-19] MEDS ORDERED: 1/2 NS 1000ml IV ONE (18:14)
--- NOTE | 2017-12-19 20:03 | General Progress Note ---
Assessment/Plan Status: stable, progressing Assessment/Plan encephalopathy due to [facility] [place] Dementia -seroquel prn Subjective Date patient seen: Dec 19, 2017 Neurologic/Psychiatric: Reports: anxiety, depressed, emotional problems Allergies: Coded Allergies: DIVALPROEX SODIUM (Verified Allergy, Unknown, 12/13/17) TERAZOSIN (Verified Allergy, Unknown, 12/13/17) Objective Last 24 Hour Vital Signs Date Time Temp Pulse Resp B/P (MAP) Pulse Ox O2 Delivery O2 Flow Rate FiO2 12/19/17 16:53 100.0 12/19/17 12:00 97.9 113 20 109/60 (76) 90 97.9 12/19/17 09:00 Room Air 12/19/17 08:33 99 18 Room Air 21 12/19/17 08:00 98.5 107 20 107/60 (76) 97 98.5 12/19/17 04:21 98.4 103 15 110/68 (82) 100 98.4 12/19/17 00:16 96.6 100 15 117/58 (77) 99 96.6 12/18/17 20:59 97 18 Room Air 21 12/18/17 20:40 Room Air Intake and Output 12/18/17 12/19/17 19:00 07:00 Intake Total 765 ml 655 ml Output Total 600 ml 250 ml Balance 165 ml 405 ml Intake Oral 360 ml IV Total 405 ml 655 ml Output Urine Total 600 ml 250 ml # Bowel Movements 1 Height (Feet): 5 Height (Inches): 8.00 Weight (Pounds): 129 General Appearance: no apparent distress, alert Neurologic: depressed affect Nixon Barber MD Dec 19, 2017 20:03
--- NOTE | 2017-12-20 11:07 | Discharge Summary ---
Discharge Summary Discharge Summary _ DATE OF ADMISSION: 12/13/2017 DATE OF DISCHARGE: 12/19/2017 CONSULTANTS: Dr. Nixon Blanchard BRIEF HOSPITAL COURSE: Patient is an 87-year-old male, with history of end-stage dementia, cachexia, correction resident, was brought in by paramedics due to altered level of consciousness. On arrival to ED, blood pressure was 83/44, heart rate was elevated to 110, he was febrile. Patient was minimally responsive. Chest x-ray showed no definite infiltrate. Blood work showed severe leukocytosis, WBC 31. Urinalysis with positive nitrite, WBC too many to count, 20-30 RBC, 3+ leukocyte esterase, 5+ blood and 4+ protein. He was admitted for sepsis with altered level of consciousness. He was given IV fluids. He was placed on NS for BP support. He was pancultured and was started on cefepime and vancomycin pending culture results. Blood pressure and renal functions were monitored. He had waxing and waning of consciousness. He had poor memory. He was diagnosed by psychiatrist to have encephalopathy due to general medical condition. He was given Seroquel. He had elevated LFTs. HIV screen was negative. Hepatitis panel was negative. He came in with anemia. Stool OB was negative. He did not require blood transfusion. He was noted to have multiple wounds upon admission. Surgery was called to evaluate. Patient was noted to have a stage IV full-thickness pressure injury to the sacrum with scattered loose slough noted on the wound bed. He had dark discolored area on the right trochanter with noted scar centrally. There was a stable dry eschar noted on the medial left malleolus. He had full thickness pressure injury on the medial left heel. Deep tissue injury on the left hallux. Dark discoloration on the lateral fifth metatarsal with no evidence of induration. 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 He was given wound care and dressings. He was placed on air soft mattress and frequent turning and positioning and offloading. Wounds did not look infected. Blood culture showed growth of gram-negative rods, Proteus. Urine culture with Proteus mirabilis. Cefepime and IV vancomycin was discontinued. He was started on ceftriaxone. He had worsening leukocytosis. Wound care was switched to Dakin's solution solution. Repeat blood culture 2 did not isolate any growth. Abdominal ultrasound showed contracted gallbladder, no definite stones. Negative for dilated ducts. Antibiotic was changed to po. agreed to hospice care. Patient was transferred to SNF. FINAL DIAGNOSES: Sepsis secondary to UTI Proteus bacteremia Proteus UTI Acute tubular necrosis Advanced dementia Severe protein calorie malnutrition Encephalopathy due to general medical condition Multiple decubiti pressure ulcer, present on admission Transaminitis possibly shock liver Anemia of chronic disease Acute kidney injury Dehydration Prostate CA Severe protein calorie malnutrition Functional quadriplegia Hypokalemia DISPOSITION: Patient was transferred to [place] under hospice. DISCHARGE MEDICATIONS: Refer to Discharge Medication List. Continue with cefpodoxime proxetil 200 mg every 12 hours for 10 days. I have been assigned to dictate discharge summary on this account, and I was not involved in the patient's management. Mehnaz Gomez NP Dec 20, 2017 11:07
== END 2017-12-19 18:15 | disposition hospice, home (50) | DRG 871 ==
LOC: EDBD 11:59 → EMR 13:45 → 4E 13:54 → EDBEDREQ 14:23
DX: A41.59 Other Gram-negative sepsis (principal); L89.154 Pressure ulcer of sacral region, stage 4; G93.40 Encephalopathy, unspecified; E43 Unspecified severe protein-calorie malnutrition; N17.0 Acute kidney failure with tubular necrosis; K72.00 Acute and subacute hepatic failure without coma; R53.2 Functional quadriplegia; N39.0 Urinary tract infection, site not specified; Z68.1 Body mass index [BMI] 19.9 or less, adult; F03.90 Unspecified dementia, unspecified severity, without behavioral disturbance, psychotic disturbance, mood disturbance, and anxiety; B96.4 Proteus (mirabilis) (morganii) as the cause of diseases classified elsewhere; D63.8 Anemia in other chronic diseases classified elsewhere; E86.0 Dehydration; Z85.46 Personal history of malignant neoplasm of prostate; E87.6 Hypokalemia; Z89.612 Acquired absence of left leg above knee; Z66 Do not resuscitate
CPT/HCPCS: 36415; 71045; 76700; 80048; 80053; 81001; 82270; 82607; 82728; 82746; 82962; 83540; 83550; 83735; 84100; 85007; 85025; 85651; 86140; 86703; 86705; 86709; 86803; 87040; 87081; 87086; 87181; 87340; 93005; 94664; 97802; J2405; J8499